=== PATIENT | female | born 1945 | race Caucasian/White ===

== ENCOUNTER 2022-05-31 13:45 | Outpatient (RCR) | payer OTHER, SELFPAY ==
[2022-05-31] MEDS: HEPARIN 500 UNIT/5 ML SYRINGE IVF (14:05)
== END 2022-06-05 23:59 | disposition home or self-care (01) ==
LOC: CCIC 13:45
PROVIDERS: PCP Family Medicine; Visit Provider Clinical Nurse Specialist
DX: C34.91 Malignant neoplasm of unspecified part of right bronchus or lung (principal)
CPT/HCPCS: 99211; J1642

== ENCOUNTER 2022-07-15 10:07 | Outpatient (CLI) | payer OTHER, SELFPAY ==
--- NOTE | 2022-07-15 11:00 | CRLHL7_ITS ---
For Patients: As a result of the Century Cures Act, medical imaging exams and procedure reports are released immediately into your electronic medical record. You may view this report before your referring provider. If you have questions, please contact your health care provider. Indication: STAGE 3 LUNG CANCER RT SIDE Technique: Noncontrast CT chest Please note that all CT scans at this facility use dose modulation, iterative reconstruction, and/or weight-based dosing when appropriate to reduce radiation dose to as low as reasonably achievable. Comparison: 01/18/2022, 10/13/2020 Findings: There is no significant interval change in the post treatment changes to the right upper perihilar lung with stable masslike opacification and bronchiectasis extending from the superior right hilum to the right lung apex. Stable 3 millimeter nodular density at the tip of the right lung apex. Mild emphysematous changes. Chronic reticulonodular scarring/fibrosis at the periphery of the right lower lobe. No pleural effusion or pneumothorax. Stable ectasia of the trachea. Dense vascular calcifications. Right-sided port and left-sided cardiac wires. No enlarged intrathoracic lymph nodes. No destructive osseous lesion. Atrophy of the left kidney. Nodularity left adrenal gland. Old manubrial fracture. Impression: No change compared to the most recent prior exam. Please note that all CT scans at this facility use dose modulation, iterative reconstruction, and/or weight-based dosing when appropriate to reduce radiation dose to as low as reasonably achievable. Dictated by Jm Mahan MD @ 07/15/2022 1:12:42 PM (Electronically Signed)
== END 2022-07-15 10:08 | disposition home or self-care (01) ==
PROVIDERS: PCP Family Medicine; Visit Provider Nurse Practitioner Family
DX: C34.91 Malignant neoplasm of unspecified part of right bronchus or lung
CPT/HCPCS: 71250

== ENCOUNTER 2022-09-02 14:00 | Outpatient (RCR) | payer OTHER, SELFPAY ==
[2022-07-05] MEDS: SODIUM CHLORIDE 0.9 % (FLUSH) 10 ML SYRINGE IVF (14:51)
[2022-07-05] MEDS: HEPARIN 500 UNIT/5 ML SYRINGE IVF (14:52)
[2022-07-15 10:58] LABS: Basophils Absolute Auto 0.03 K/uL (0.00-0.30); Basophils Percent Auto 0.5 % (0.0-3.0); Eosinophils Absolute Auto 0.14 K/uL (0.00-0.50); Eosinophils Percent Auto 2.4 % (0.0-7.0); Hematocrit 37.2 % (33.0-51.0); Immature Granulocytes Abs Auto 0.03 K/uL (0.00-0.30); Lymphocytes Percent Auto 13.2 % (20-44); Mean Corpuscular HGB Conc 32 gm/dL (32-36); Mean Corpuscular Hemoglobin 29 pg (26-34); Mean Corpuscular Volume 91 fL (80-100); Monocytes Percent Auto 8.4 % (0.0-11.0); Platelet Count* 206 K/uL (140-440); RDW Coefficient of Variation % 13.7 % (11.5-15.5); White Blood Count* 5.85 K/uL (4.50-11.00)
[2022-07-15 10:59] LABS: Slide Review Reflex No
[2022-07-15 11:03] LABS: Albumin* 4.5 g/dL (3.3-5.0); Chloride* 102 mmol/L (96-114)
[2022-07-15 11:04] LABS: Potassium* 4.7 mmol/L (3.6-5.1); Sodium* 137 mmol/L (135-149)
[2022-07-15 11:06] LABS: Bilirubin Total* 0.5 mg/dL (0.1-1.5); Creatinine* 2.1 mg/dL (0.5-1.5); Estimated Glomerular Filt Rate 24 ml/min
[2022-07-15 11:07] LABS: Alanine Aminotransferase* 20 U/L (4-35); Alkaline Phosphatase* 115 U/L (40-150); Aspartate Amino Transferase* 25 U/L (12-35); Blood Urea Nitrogen* 38 mg/dL (7-30); Carbon Dioxide* 24 mmol/L (20-32); Glucose* 105 mg/dL (60-115); Total Protein* 7.7 g/dL (6.0-8.3)
--- NOTE | 2022-07-15 14:54 | ONC.NURNOTE ---
Pt here today for labs/CT scan. Creat 2.1; was 1.8 01/2022. Pt has history of acute kidney injury; Dr. Cleaning is primary care. Pt is feeling well and hydrated; recommended pt increase hydration in the next few days, reviewed avoiding caffeine/alcohol and to f/u with Dr. Cleaning within the next week. LM with Dr. Cleaning's team describing situation and that pt was recomended to f/u within 1 week with him for follow up/further workup.
[2022-09-02] MEDS: HEPARIN 500 UNIT/5 ML SYRINGE IVF (13:55)
[2022-09-02] MEDS: SODIUM CHLORIDE 0.9 % (FLUSH) 10 ML SYRINGE IVF (13:55)
== END 2023-01-01 23:59 | disposition home or self-care (01) ==
LOC: CCIC 14:00
PROVIDERS: PCP Family Medicine; Referring Provider Family Medicine; Visit Provider Clinical Nurse Specialist
DX: C34.91 Malignant neoplasm of unspecified part of right bronchus or lung (principal)
CPT/HCPCS: 36415; 36591; 80053; 85025; 99211; 99212; 99214; J1642

== ENCOUNTER 2023-02-13 09:46 | Outpatient (CLI) | payer OTHER, SELFPAY ==
--- NOTE | 2023-02-13 | CRLHL7_ITS ---
For Patients: As a result of the Century Cures Act, medical imaging exams and procedure reports are released immediately into your electronic medical record. You may view this report before your referring provider. If you have questions, please contact your health care provider. Indication: Stage III lung cancer monitor Technique: Noncontrast CT chest Please note that all CT scans at this facility use dose modulation, iterative reconstruction, and/or weight-based dosing when appropriate to reduce radiation dose to as low as reasonably achievable. Comparison: 07/15/2022 Findings: Stable posttreatment changes to the right upper lobe with stable soft tissue density extending from the right superior hilum to the right apical pleura along with bronchiectasis and volume loss. Stable tiny nodules in the posterior left lower lobe. Underlying chronic lung disease and patchy areas of scarring. No acute infiltrate, edema, effusion or pneumothorax. Left-sided port. Atherosclerotic disease. No enlarged lymph nodes. Ectatic aorta. Nodularity of the adrenal glands. Atrophy of the left kidney. Stable appearance of the manubrium. Impression: Stable exam. No significant change compared to the prior study Please note that all CT scans at this facility use dose modulation, iterative reconstruction, and/or weight-based dosing when appropriate to reduce radiation dose to as low as reasonably achievable. Dictated by Jm Mahan MD @ 02/14/2023 11:08:17 AM (Electronically Signed)
== END 2023-02-13 09:47 | disposition home or self-care (01) ==
LOC: CT 09:47
PROVIDERS: PCP Family Medicine; Visit Provider Nurse Practitioner Family
DX: C34.90 Malignant neoplasm of unspecified part of unspecified bronchus or lung (principal)
CPT/HCPCS: 71250

== ENCOUNTER 2023-02-23 10:10 | Outpatient (RCR) | payer OTHER, SELFPAY | END 2023-08-22 23:59 | disposition home or self-care (01) | LOC: CCIC 10:10 | PROVIDERS: PCP Family Medicine; Referring Provider Family Medicine; Visit Provider Internal Medicine Hematology & Oncology | DX: C34.91 Malignant neoplasm of unspecified part of right bronchus or lung (principal); N18.9 Chronic kidney disease, unspecified | CPT/HCPCS: 99212; 99214 ==

== ENCOUNTER 2023-05-04 10:47 | Outpatient (CLI) | payer OTHER, SELFPAY | END 2023-05-04 10:48 | disposition home or self-care (01) | PROVIDERS: PCP Family Medicine; Visit Provider Nurse Practitioner Family | DX: Z00.00 Encounter for general adult medical examination without abnormal findings (principal); E78.5 Hyperlipidemia, unspecified; I10 Essential (primary) hypertension; E03.9 Hypothyroidism, unspecified | CPT/HCPCS: 80053; 80061; 84443 ==

== ENCOUNTER 2023-08-28 14:29 | Outpatient (CLI) | payer OTHER, SELFPAY ==
--- NOTE | 2023-08-28 15:00 | CRLHL7_ITS ---
For Patients: As a result of the Century Cures Act, medical imaging exams and procedure reports are released immediately into your electronic medical record. You may view this report before your referring provider. If you have questions, please contact your health care provider. 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 Comparison: 02/13/2023, 07/15/2022 Findings: Posttreatment changes to the right upper lung again noted with volume loss and bronchiectasis. Mild scarring is present within the lung parenchyma elsewhere within both lung apices and within the posterior aspect of the right lower lobe. No pleural effusion or pulmonary edema. No fracture. No enlarged lymph nodes. Atherosclerotic disease. Thickening of the left adrenal gland is unchanged. Impression: Stable exam. No significant change. Please note that all CT scans at this facility use dose modulation, iterative reconstruction, and/or weight-based dosing when appropriate to reduce radiation dose to as low as reasonably achievable. Dictated by Jm Mahan MD @ 08/29/2023 9:32:11 AM (Electronically Signed)
== END 2023-08-28 14:30 | disposition home or self-care (01) ==
LOC: CT 14:30
PROVIDERS: PCP Family Medicine; Visit Provider Internal Medicine Hematology & Oncology
DX: C34.90 Malignant neoplasm of unspecified part of unspecified bronchus or lung (principal)
CPT/HCPCS: 71250

== ENCOUNTER 2024-04-24 11:20 | Outpatient (CLI) | payer OTHER, SELFPAY | END 2024-04-24 11:21 | disposition home or self-care (01) | PROVIDERS: PCP Family Medicine; Visit Provider Family Medicine | DX: E03.9 Hypothyroidism, unspecified (principal); E78.5 Hyperlipidemia, unspecified; I10 Essential (primary) hypertension | CPT/HCPCS: 80053; 80061; 84443 ==

== ENCOUNTER 2024-09-16 09:34 | Outpatient (CLI) | payer OTHER, SELFPAY ==
--- OUTSIDE RECORDS SUMMARY | 2024-09-21 06:19 | XMS_ITS | Clinical Summary ---
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 Encounters Date Type Department Care Team Description 09/17/2024 1:00 PM DRYWALL APPLICATION SUPERVISOR Ancillary Procedure [facility] [address] [place] [address] Arrived 09/17/2024 Lab Requisition [facility] [phone] Unknown, Doctor from Last 3 Months Immunizations Name Administration Dates Next Due Td, [...] Comments Blood Pressure 116/70 09/23/2019 12:30 PM DRYWALL APPLICATION SUPERVISOR Pulse 60 09/23/2019 12:30 PM DRYWALL APPLICATION SUPERVISOR Temperature 36.7 ??C (98.1 ??F) 04/03/2019 10:52 AM C DT Respiratory Rate 16 09/23/2019 12:30 PM DRYWALL APPLICATION SUPERVISOR Oxygen Saturation 93% 04/03/2019 11:50 AM CDT Inhaled Oxygen Concentration - - Weight 64.9 kg (143 lb) 09/23/2019 12:30 PM DRYWALL APPLICATION SUPERVISOR Height 162.6 cm (5' 4) 04/02/2019 11:09 [...] Tetanus booster 02/17/2020 02/16/2010 COVID-19 vaccine series ( season) 4 Influenza for age 65+ 07/07/2024 DEXA/DXA scan for age 65+ Completed 04/12/2011 Medical Devices Implanted Type Area Marketing Development Representative Device Identifier Shelf Expiration Date Model / Serial / Lot Icd Only Implanted:03/2010 by Unknown, Doctor (Quantity not on file) ICD Only [employer] V-[id number] / [id number] / Procedures Procedure Name Priority Date/Time Associated Diagnosis Comments ECHO TTE COMPLETE W CONTRAST Routine 09/17/2024 1:54 PM DRYWALL APPLICATION SUPERVISOR Atrial fibrillation with RVR (HC) LAB TRACKING EVENT Routine 09/16/2024 4: 53 PM DRYWALL APPLICATION SUPERVISOR PATH NON BOX COVERER HAND CYTOLOGY Routine 09/16/2024 12:00 PM DRYWALL APPLICATION SUPERVISOR SCAN-BONE DENSITOMETRY DEXA 04/12/2011 12:00 AM CDT from Last 3 Months or Most Recently Relevant to Health Maintenance Results * ECHO TTE COMPLETE W CONTRAST (09/17/2024 1:54 PM DRYWALL APPLICATION SUPERVISOR) AORTIC VALVE MEAN PG 6 mmHg LVEDD 4.8 cm EJECTION FRACTION 20 - 25% Anatomical Region Laterality Modality Ultrasound 09/17/2024 1:08 PM DRYWALL APPLICATION SUPERVISOR Narrative 09/17/2024 4:54 PM DRYWALL APPLICATION SUPERVISOR ECHOCARDIOGRAM RUPALI NIEVES ?Accession#: ?? [id number] : ?1945 79 years Study Date: ?? 09/17/2024 1:08:57 PM Gender: F ? BP: ? 166/65 mmHg Height: 157.00 cm ? BSA: ?1.68 m? ? ? Weight: 67.00 kg ?Tech: ? MBF ?Referring MD: PROVIDER REFERRING Site: ? [facility] Reading Location: Mobile [facility] Patient Location: Inpatient. Procedure: 2D w/ Contrast, Color Doppler and Spectral Doppler. Indication for study: Atrial fibrillation with RVR Cardiac Rhythm: Atrial fibrillation.Study quality: Fair. Final Impressions: 1. Normal LV size, normal wall thickness, severely reduced global systolic function with an estimated EF of 20 - 25%. 2. Multiple segmental abnormalities exist. See findings. 3. Right ventricular cavity size is normal, global systolic RV function is normal. Pacemaker wire present. 4. The aortic valve is trileaflet and sclerotic, no stenosis and trivial regurgitation. 5. Trivial pericardial effusion. 6. Echo contrast was administered to enhance visualization of all left ventricular segments. Chamber Sizes and Function Normal left ventricular size, normal wall thickness, severely reduced global systolic function with an estimated EF of 20 - 25%. Left atrial size is normal. Left atrial pressure is normal. Right ventricular cavity size is normal, global systolic RV function is normal. Pacing wire/catheter visualized in the right ventricle and pacing wire/catheter visualized in the right atrium. The right atrium is normal. The pulmonary artery is of normal size and origin. The sinus of Valsalva is normal sized. The ascending aorta is normal sized. The mid and distal anterior septum, inferior septum, and entire inferior wall are akinetic. The basal anterior septum segment and apical anterior segment are hypokinetic. Valves, RV Pressures and Diastolic Function The aortic valve is trileaflet and sclerotic, no stenosis and trivial regurgitation. The mitral valve is normal in structure, trace mitral regurgitation. Indeterminate pattern of LV diastolic filling. The tricuspid valve is not well visualized. Tricuspid regurgitation is trace regurgitation. The pulmonic valve is normal. Trace pulmonary regurgitation. Masses, Effusion, Shunts There is trivial pericardial effusion. The inferior vena cava is normal sized, respiratory size variation greater than 50%. No left to right shunting was detected by limited color flow Doppler interrogation of the interatrial septum. MEASUREMENTS AND CALCULATIONS 2-D Measurements and LV Function: LVID (d) 4.8 cm LV FS% (2D) ?? 5 % LVID (s) 4.5 cm LVOT diameter 2.0 cm IVS (d) ??1.0 cm HR ?128 bpm LVPW (d) 1.0 cm LA Vol index ??27 ml/m2 Ao Sinus 3.3 cm Asc Ao ?? 3.7 cm Aortic Valve: Vmax ? 1.5 m/s ??SUSANNAH (V) ?? 1.80 cm? ? ? VTI ?0.26 m ?? SUSANNAH (I) ?? 1.69 cm? ? ? LVOT V max 0.9 m/s ??Max PG ?9 mmHg LVOT VTI ?? 0.14 m ?? Mean PG ?? 6 mmHg SV ? 43 ml ?Dim Index 0.56 SV index ?? 26 ml/m? ? ? CO ?5.5 l/min ?CI ?3.3 l/min/m? ? ? Tricuspid Valve and estimated PA pressures: TAPSE 0.9 cm Contrast documentation: 3 ml diluted Definity, lot #[id number], [facility]# [id number] was administered Port to enhance visualization of all left ventricular segments. . This study was interpreted by an IAC accredited facility. CC: [facility] (med records) [facility], Med/Surg - IP [facility]. ??Final ?? Procedure Note mJ Emmanuel MD - 09/17/2024 ECHOCARDIOGRAM RUPALI NIEVES : 1945 79 years Study Date: 09/17/2024 1:08:57 PM Gender: F BP: 166/65 mmHg Height: 157.00 cm BSA: 1.68 m? ? ? Weight: 67.00 kg Tech: JACI Referring MD: PROVIDER REFERRING Site: [facility] Reading Location: Mobile [facility] Patient Location: Inpatient. Procedure: 2D w/ Contrast, Color Doppler and Spectral Doppler. Indication for study: Atrial fibrillation with RVR Cardiac Rhythm: Atrial fibrillation.Study quality: Fair. Final Impressions: 1. Normal LV size, normal wall thickness, severely reduced globalsystolic function with an estimated EF of 20 - 25%. 2. Multiple segmental abnormalities exist. See findings. 3. Right ventricular cavity size is normal, global systolic RV functionis normal. Pacemaker wire present. 4. The aortic valve is trileaflet and sclerotic, no stenosis and trivialregurgitation. 5. Trivial pericardial effusion. 6. Echo contrast was administered to enhance visualization of all leftventricular segments. Chamber Sizes and Function Normal left ventricular size, normal wall thickness, severely reducedglobal systolic function with an estimated EF of 20 - 25%. Left atrialsize is normal. Left atrial pressure is normal. Right ventricular cavitysize is normal, global systolic RV function is normal. Pacingwire/catheter visualized in the right ventricle and pacing wire/cathetervisualized in the right atrium. The right atrium is normal. The pulmonaryartery is of normal size and origin. The sinus of Valsalva is normalsized. The ascending aorta is normal sized. The mid and distal anteriorseptum, inferior septum, and entire inferior wall are akinetic. The basalanterior septum segment and apical anterior segment are hypokinetic. Valves, RV Pressures and Diastolic Function The aortic valve is trileaflet and sclerotic, no stenosis and trivialregurgitation. The mitral valve is normal in structure, trace mitralregurgitation. Indeterminate pattern of LV diastolic filling. Thetricuspid valve is not well visualized. Tricuspid regurgitation is traceregurgitation. The pulmonic valve is normal. Trace pulmonaryregurgitation. Masses, Effusion, Shunts There is trivial pericardial effusion. The inferior vena cava is normalsized, respiratory size variation greater than 50%. No left to rightshunting was detected by limited color flow Doppler interrogation of theinteratrial septum. MEASUREMENTS AND CALCULATIONS 2-D Measurements and LV Function: LVID (d) 4.8 cm LV FS% (2D) 5 % LVID (s) 4.5 cm LVOT diameter 2.0 cm IVS (d) 1.0 cm HR 128 bpm LVPW (d) 1.0 cm LA Vol index 27 ml/m2 Ao Sinus 3.3 cm Asc Ao 3.7 cm Aortic Valve: Vmax 1.5 m/s SUSANNAH (V) 1.80 cm? ? ? VTI 0.26 m SUSNANAH (I) 1.69 cm? ? ? LVOT V max 0.9 m/s Max PG 9 mmHg LVOT VTI 0.14 m Mean PG 6 mmHg SV 43 ml Dim Index 0.56 SV index 26 ml/m? ? ? CO 5.5 l/min CI 3.3 l/min/m? ? ? Tricuspid Valve and estimated PA pressures: TAPSE 0.9 cm Contrast documentation: 3 ml diluted Definity, lot #[id number], [facility]#[id number] was administered Port to enhance visualization of all leftventricular segments. . This study was interpreted by an IAC accredited facility. CC: [facility] (med records) [facility], [facility]/Surg - IP [facility]. Final Provider Referring ECHO ORD * LAB TRACKING EVENT (09/16/2024 4:53 PM DRYWALL APPLICATION SUPERVISOR) Other (Other) Client Collect / Unknown 09/16/2024 4:53 PM DRYWALL APPLICATION SUPERVISOR 09/17/2024 1:48 PM DRYWALL APPLICATION SUPERVISOR Doctor Unknown LAB BILL ONLY [facility] [address] [place] [address], * PATH NON BOX COVERER HAND CYTOLOGY (09/16/2024 12:00 PM DRYWALL APPLICATION SUPERVISOR) Case Report Medical Cytology Report ? Case: [id number] ? Authorizing Provider: ??Unknown, Doctor ?Collected: ? 09/16/2024 1200 ? Ordering Location: ? [facility] ?Received: ?09/17/2024 1426 ? Pathologist: ? Rajinder Hare MD ? Specimen: ?Pleural Fluid ? 4 2:55 PM [facility] Final Diagnosis A) PLEURAL FLUID, LATERALITY NOT SPECIFIED, CYTOLOGY WITH CELL BLOCK: 1. Positive for malignancy, favor metastatic small cell carcinoma, see comment 4 2:55 PM DRYWALL APPLICATION SUPERVISOR [facility] Comment The sample is hypocellular, showing a few scattered individual malignant cells and small groups of malignant cells. These cells are small in size with high nuclear / cytoplasmic ratios and finely granular chromatin without nucleoli. IHC studies below are in keeping with, although not entirely specific for small cell carcinoma. ??The patient's reported history of squamous carcinoma of the right lung is noted. ??The morphology and IHC in the current slides are not those of a squamous phenotype. Case seen in consultation with Dr. Sunshine who agrees. 4 2:55 PM [facility] Clinical Information Patient is a former smoker with a history of squamous carcinoma of the right lung, upper lobe. Electronic notes in Care Everywhere from [facility] indicating that she was treated by radiation oncology there in 2019. 4 2:55 PM [facility] Gross Description A) SOURCE: Pleural fluid The specimen consists of 5 cc of light yellow clear fluid from which the following is prepared: ? -1 DiffQuik stained slide ? -1 Papanicolaou stained ThinPrep slide ? -1 H&E stained cell block slide A2 Cell block material was placed in formalin at 1450 on 09/17/24 and fixed in formalin at least 6 hours and no more than 72 hours. A3 Cell block material was placed in formalin at 0940 on 09/19/24 and fixed in formalin at least 6 hours and no more than 72 hours. 4 2:55 PM [facility] Microscopic Description Specimen adequacy: Adequate for interpretation. All slides were reviewed. The microscopic appearance substantiates the diagnosis. IHC studies (cell block A2) are interpreted in the malignant cells as follows: CK AE1/AE3... ?Positive TTF1... ?Negative ? Napsin... ?Negative p40... ? Negative CK5... ? Negative Synaptophysin... ?? Negative Chromogranin... ?Negative INSM1... ? Positive POU2F3... ?Negative The pattern of immunoreactivity is consistent with (although not specific for) metastatic small cell carcinoma. Support for the interpretation of this case may have included the use of immunohistochemistry and/or in situ hybridization tests that were performed by [facility] and whose performance characteristics were evaluated by pathologists from [facility]. These tests have not been cleared or approved by the U.S. Food and Drug Administration. The FDA has determined that such clearance or approval is not necessary. These tests are used for clinical purposes and should not be regarded as investigational or for research. This laboratory is certified under the Clinical Laboratory Improvement Amendments of 1988 (CLIA) as qualified to perform high complexity clinical laboratory testing. 4 2:55 PM DRYWALL APPLICATION SUPERVISOR [facility] Additional Information Cytology is screened at [facility] - [address], [place] [address] and [facility] - [address] [place] [address] and [facility] - [address] [place] [place] [address] Interpreted at [facility] - [address], [place] [address] Immunohistochemistry controls were reviewed and approved by the pathologist during this examination. 4 2:55 PM DRYWALL APPLICATION SUPERVISOR [facility] Other PLEURAL FLUID SPECIMEN / Unknown 09/16/2024 12:00 PM DRYWALL APPLICATION SUPERVISOR 09/17/2024 2:26 PM DRYWALL APPLICATION SUPERVISOR Doctor Unknown PATHOLOGY/CYTOLOGY [facility] [address] [place] [address], * SCAN-BONE DENSITOMETRY DEXA (04/12/2011 12:00 AM [...] 9:10 AM 11/23/2017 3:51 PM Care Teams Time Cycle Operator Relationship Specialty Start Date End Date Dago Cleaning MD PCP - General Family Practice 05/28/14
== END 2024-09-16 09:35 | disposition home or self-care (01) ==
LOC: AMB 09-21 06:18
PROVIDERS: PCP Family Medicine; Visit Provider Family Medicine
DX: R53.1 Weakness (principal)
CPT/HCPCS: A0425; A0427

== ENCOUNTER 2024-09-16 10:09 | Inpatient (IN) | payer OTHER, SELFPAY ==
[2024-09-16] VITALS (46 sets, daily range): BP systolic 78–123; BP diastolic 48–90; PULSE 101–135; RESP 22–38; TEMP 35.8–36.4; O2SAT 89–99; BMI 26.6
--- NOTE | 2024-09-16 10:22 | ED_ITS ---
HPI - General Adult General Date Seen: 09/16/24 Chief complaint: Weakness Stated complaint: weakness Time Seen by Provider: 09/16/24 10:22 History of Present Illness HPI narrative: 79 yo F with h/o HTN, A fib, ICD, Lung CA, tobacco use,, dementia, colon polyps, coronary artery disease (AL 2009 with 2 stents), CHF with EF of 30% he, presenting to the ER today with weakness. Most recent PCP visit was in April. According to those notes she is on Eliquis, hydrochlorothiazide, levothyroxine, lisinopril, metoprolol ER 25 mg daily, rosuvastatin, Tylenol She most recent oncology visit was in 2021. According that record she was treated for lung cancer in 2019. She had chemotherapy and radiation therapy. According to her visit from 2021 She is post to have follow-up CT scans of her lungs every 6 months (noncontrast due to poor kidney function). It does not look like she has had any follow-up visits with oncology in [place] since then. She lives alone in her own home. History is obtained from the patient. She says she has just been feeling ?weak? with no energy since last . She has a very vague historian and I suspect she probably has some dementia which limits her reliability. It does not sound like the weakness was abrupt in onset . She may have actually been a little bit weak for a few days before but definitely has been weak since then. No other definite symptoms. She is not really feeling short of breath. No chest pain. No palpitations despite the fact that her heart rate is 130. No recent cough. No fever. No falls or injuries. No abdominal pain. She has been feeling constipated and was only able to pass a few hard pellets of stool yesterday. No bowel movement today. She says urination has been normal. No swelling in her legs. She brought all of her meds with her. Her pill bottles reflect what was on her med list from April. When I ask her what med she is taking, specifically if she is taking her Eliquis or not, she says ?I do not think I have that .? however, she has a bottle of Eliquis with her along with her other meds. I asked the patient if she has any close friends or family. She says her children live ?2 blocks away. ?. But she does not want us to call them. She says ?they will find out I am here this evening when they get home firm work. However, with the patient seeming confusion I did call her family. Her son Arnold has a phone number that is disconnected. I was able to get through to her [id number], Elizabeth. Elizabeth says that they have been seeing her occasionally lately and that she seems to be a little bit short of breath sometimes but they are not sure if it she is really short of breath or just anxious. No obvious difficulty breathing and no obvious recent illness. Elizabeth has not had contact with her for several days. Elizabeth will come here to the ER to be with her. Related Data Home Medications ?Medication ?Instructions ?Recorded ?Confirmed acetaminophen 325 mg capsule 650 mg PO Q6H PRN 08/04/22 09/16/24 (Tylenol) Previous Rx's ?Medication ?Instructions ?Recorded apixaban 2.5 mg tablet (Eliquis) 2.5 mg PO BID #180 tabs 04/24/24 hydrochlorothiazide 25 mg tablet 25 mg PO DAILY #90 tabs 04/24/24 levothyroxine 88 mcg tablet See Rx Instructions .Route 04/24/24 .COMPLEX #90 tabs lisinopril 10 mg tablet See Rx Instructions .Route 04/24/24 .COMPLEX #90 tabs metoprolol succinate 25 mg 25 mg PO DAILY #90 tabs 04/24/24 tablet,extended release 24 hr rosuvastatin 20 mg tablet 20 mg PO DAILY #90 tabs 04/24/24 Allergies Allergy/AdvReac Type Severity Reaction Status Date / Time penicillin V Allergy Mild swelling Verified 09/16/24 10:26 [facility] Surgical History Status post coronary artery stent placement ?Z95.5 - Presence of coronary angioplasty implant and graft (ICD-10) Status post cardiac pacemaker procedure ?Z95.0 - Presence of cardiac pacemaker (ICD-10) Status post breast lumpectomy ?Z98.890 - Other specified postprocedural states (ICD-10) Social History What is your current living situation?: I presently have a place to live Problems where you live: no known problems In the past 12 months, utilities in danger of being shut off: no In past 12 months, lack of transportation kept you from medical appts, meetings, work, or getting things needed for daily living: no In the past 12 mos, have been you worried that your food would run out before you had money to buy more?: never true In the past 12 mos, the food you bought just didn't last and you didn't have money to buy more?: never true Are you following a diet prescribed by a doctor: No Are you following a special diet: No Smoking Status: Former smoker How often do you have a drink containing alcohol: never How often do you have six or more drinks on one occasion: Never AUDIT-C Alcohol total score: 0 Non-prescribed substance use: denies use Caffeine: Yes How often does anyone, including family, friends and others, physically hurt you : never How often does anyone, including family, friends and others, insult or talk down to you: never How often does anyone, including family, friends and others, threaten you with harm: never How often does anyone, including family, friends and others, scream or curse at you: decline to answer Little interest or pleasure in doing things: more than half the days Feeling down, depressed, or hopeless: nearly every day Exam Narrative: Exam Narrative: Primary Survey: A- patent. Speaking clearly. Phonation normal. No stridor. B- tachypneic but denies feeling short of breath. Says she ?feels fine. ?. Lung sounds clear and equal. Oxygen saturation normal on room air . Was reported to be in the 80s by EMS and was charted 89% by her nurse triage vitals but sats are actually 93% on room air. Very diminished lung sounds on the right. I did a stat portable bedside ultrasound and there is absent lung sliding on the right but there is present lung sliding on the left. This suggests either air or fluid in the chest cavity. Stat portable chest x-ray shows complete whiteout of the right lung with apparent upward deviation of the right mainstem bronchus. Will hold off on chest CT since this is not definitively a pneumothorax. She has a history of lung cancer on that side with no previous surgery, per her recollection. Oncology records indicate that she had chemotherapy and radiation. C- no active bleeding. Blood pressure stable. Tachycardic with heart rate of 130, regular on the monitor. EKG suggest either a flutter with 2:1 conduction or possibly SVT. Symmetric pulses and cap refill in 4 extremities. D- alert and oriented x3. GCS 15. No focal deficits. Constitutional: Appears well-developed and well-nourished. Alert. Conversant but vague historian. Non toxic. HENT: Head: Atraumatic. Nose: Nose normal. Mouth/Throat: Oral mucosa is clear and moist. no trismus. Pharynx normal. Tonsils symmetric. No tonsillar enlargement, erythema, or exudate. Eyes: Conjunctivae normal. EOM normal. Pupils equal, round, and reactive to light. No scleral icterus. Neck: Normal range of motion. Neck supple. No tracheal deviation present. No JVD Cardiovascular: Tachycardic and regular. Heart rate 130.No gallop. No friction rub. No murmur heard. Symmetric radial and PT artery pulses Pulmonary/Chest: Tachypneic. Says she is not feeling short of breath. Diminished lung sounds on the right. Fairly normal on the left. No asymmetry of the trachea or tracheal deviation. Abdominal: Soft. Bowel sounds normal. No distension. No mass. No tenderness. No rebound. No guarding. No CVA tenderness. Musculoskeletal: RUE: Normal range of motion. No tenderness. No deformity LUE: Normal range of motion. No tenderness. No deformity RLE: Normal range of motion. No edema. No tenderness. No deformity LLE: Normal range of motion. No edema. No tenderness. No deformity Neurological: Alert and oriented to person, place, and date. She lives alone and says she was thinking about driving in but was feeling too weak so decided to call ambulance. However she is not a reliable historian. She can not really give a description of how long she has been feeling weak. Although she has Eliquis with her other meds, she initially says she did not have it.. Normal strength. CN II-VII intact. No sensory deficit. GCS eye subscore is 4. GCS verbal subscore is 5. GCS motor subscore is 6. Normal coordination Skin: Skin is warm and dry. No rash noted. No pallor. Normal capillary refill. Psychiatric: Normal mood. Normal affect. She is minimizing her symptoms, I think. Polite. Const: Vital Signs, click to edit/add: Vital Signs - 24 hr 09/16/24 10:18 Temperature 96.4 F L Pulse Rate [Pulse Oximeter] 131 H Respiratory Rate 22 Blood Pressure [Le ft Upper Arm] 109/84 Pulse Oximetry 89 Oxygen Delivery Me thod Room Air Course Course ED Course: Patient arrived by EMS and was triaged in the ER room 8. Report was given by EMS to the nursing staff without physician present. Nurse's obtain 12 lead EKG and brought it to me. It showed a narrow complex tachycardia with a heart rate of 130. Either SVT or possibly a flutter with 2:1 conduction. I went immediately to the patient's room to perform history and physical. She was sitting up in bed, alert, tachypneic but otherwise not in distress. No accessory muscle use new, no cyanosis, no diaphoresis. No severe distress. She is able to speak full sentences. Lung exam revealed absent lung sounds on the right side. Point of care ultrasound showed absent lung sliding suggestive of pneumothorax or other fluid in the right chest cavity. With history of lung cancer, unclear if she had had a previous pneumonectomy there or not. Although she is tachycardic, would hold off on immediate chest tube placement. Portable chest x-ray shows complete whiteout of the lung, not a clear pneumothorax. Point of care creatinine came back at 2.2. Baseline creatinine from April was 1.9 with a GFR 27. With worsening kidney function would hold off on CT with contrast. I ordered a stat noncontrast chest CT and call radiology department to have them expedite the imaging. Although she is tachycardic and tachypneic her oxygen sats are normal on room air. She is not in extreme distress requiring immediate chest tube placement. Would be optimal to get better imaging of her chest to make sure we do the appropriate interventions. Likewise, although she has a heart rate of 130, would hold off on any rate control for now because I think this may be a physiologic response to her lung problem rather than a primary arrhythmia. Will administer IV fluids and monitor carefully. Vital Signs Vital signs: Initial Vital Signs Temperature 96.4 F L 09/16/24 10:18 Temperature Source Temporal Artery Scan 09/16/24 10:18 Pulse Rate 131 H 09/16/24 10:18 Pulse Rhythm Irregular 09/16/24 10:18 Respiratory Rate 22 09/16/24 10:18 Blood Pressure 109/84 09/16/24 10:18 Blood Pressure Mean 92 09/16/24 10:18 Blood Pressure Position Sitting 09/16/24 10:18 Pulse Oximetry 89 09/16/24 10:18 Oxygen Delivery Method Room Air 09/16/24 10:18 Vital Signs Temperature 96.4 F L 09/16/24 10:18 Pulse Rate 131 H 09/16/24 10:18 Respiratory Rate 22 09/16/24 10:18 Blood Pressure 109/84 09/16/24 10:18 Pulse Oximetry 89 09/16/24 10:18 Oxygen Delivery Method Room Air 09/16/24 10:18 Temperature 96.4 F L 09/16/24 10:18 Pulse Rate 131 H 09/16/24 10:18 Respiratory Rate 22 09/16/24 10:18 Blood Pressure 109/84 09/16/24 10:18 Pulse Oximetry 89 09/16/24 10:18 Oxygen Delivery Method Room Air 09/16/24 10:18 Medications Administered Medications: Discontinued Medications Generic Name Dose Route Start Last Admin Trade Name Freq PRN Reason Stop Dose Admin Sodium Chloride 500 mls @ 500 mls/hr 09/16/24 10:37 09/16/24 11:15 0.9 % Sodium Chloride 500 Ml IV 09/16/24 11:36 500 mls/hr .Q1H ONE Administration Medical Decision Making MDM Narrative Medical decision making narrative: 79-year-old female presenting to the ER today for ?weakness? ongoing for several days at home. She has been putting off coming to the doctor because she just does not want to take the trouble or bother anybody. Does not sound like she is acutely worse today but today she finally decided that she should be seen. She was feeling a bit too weak so she decided not to drive herself and had an ambulance bring her in. She denies feeling short of breath but is a bit tachypneic. She was hypoxic for EMS but initially had normal sats here in the ER. She then fell asleep and did develop hypoxia so is now on 2 L nasal cannula and satting in the 90s. She is not acutely short of breath requiring CPAP or BiPAP or endotracheal intubation. Lung sounds are quite diminished on the right. Chest x-ray and CT scan show complete whiteout of the right hemithorax. CT scan suggests a pleural effusion with compression of the right long. Not in acute pneumothorax. No history of trauma to raise concern for hemothorax. Concern here would be is this a malignant pleural effusion or is this perhaps a reactive pleural effusion or empyema. CT scan also shows mediastinal and subcarinal lymphadenopathy which could be concerning for progressive malignancy. CT scan also shows a small pericardial effusion. Cardiac monitoring EKG show a regular narrow complex tachycardia with our rate consistently at 130. EKG computer read on the EKG suggest this is supraventricular tachycardia. However at the fairly low rate I doubt that. I do not see any clear retrograde P waves. I do think she may actually be having for atrial flutter with 2:1 conduction because I think there are flutter waves visible in lead V1 and the aVL. She has a history of AFib. She is supposed to be on anticoagulation with Eliquis but it is unclear if she is taking it lately or not. In discussion with admitting hospitalist we considered possible AV noreen blockers for rate control. However with her large pleural effusion we wonder if this might actually be a physiologically appropriate reactive tachycardia. Since she is otherwise relatively stable. Normal blood pressure. Satting well on 2 L nasal cannula, we will hold off on AV noreen blockers for now. Discussed with our general surgeon, Dr. Barrientos with several phone calls here in the ER. She is going to be going to the OR for a thoracentesis to drain fluid from right lung. As we decompressed the right hemithorax, this might also help improve heart rate and symptoms. At this point since she is fairly stable, it would be best for the patient to have thoracentesis done in the OR rather than a chest tube in the ER so will hold off on emergent chest tube. CBC does show mild leukocytosis with a left shift. No recent cough. However will start antibiotics for possible community-acquired pneumonia. Chest x-ray suggested possible left-sided pulmonary edema but on her CT scan this seems less likely. At the BNP is 2000 but no previous baseline for comparison. She does have chronic renal insufficiency. At this point no clear evidence for acute active CHF so would hold off on diuresis. Troponin negative an EKG showing no acute ischemia. Metabolic profile shows a creatinine of 2.0. Baseline from April was 1.9. Low GFR precludes CT chest with contrast due to the risk of contrast nephropathy. TSH normal. Sodium mildly low at 127. Hemoglobin normal at 13.5. Patient denies any recent black or bloody stools. Plan will be admit to the hospitalist service for tele/careful cardiac and hemodynamic monitoring. She will be going to the OR in the next couple of hours for thoracentesis. Discussed with the patient. She verbalizes her understanding but I suspect she may have some underlying dementia or possibly delirium. Also discussed with her family, Elizabeth. Elizabeth and the patient's son will come to the hospital to meet her mother this afternoon. Lab Data Labs: Lab Results 09/16/24 09/16/24 Range/Units 10:48 11:00 WBC 11.12 H (4.50-11.00) K/uL RBC 4.85 (4.00-5.20) m/uL Hgb 13.5 (12.0-16.0) gm/dL Hct 41.0 (33.0-51.0) % MCV 85 (80-100) fL MCH 28 (26-34) pg MCHC 33 (32-36) gm/dL RDW Coeff of Brianne 13.6 (11.5-15.5) % Plt Count 370 (140-440) K/uL Neut % (Auto) 90.2 H (42.0-72.0) % Lymph % (Auto) 3.4 L (20-44) % [place] % (Auto) 5.3 (0.0-11.0) % Eos % (Auto) 0.4 (0.0-7.0) % Baso % (Auto) 0.3 (0.0-3.0) % Neut # (Auto) 10.00 H (1.7-7.0) K/uL Lymph # (Auto) 0.40 L (0.90-2.90) K/uL [place] # (Auto) 0.60 (0.00-0.90) K/UL Eos # (Auto) 0.00 (0.00-0.50) K/uL Baso # (Auto) 0.00 (0.00-0.30) K/uL Abs Immat Gran (auto) 0.00 (0.00-0.30) K/uL Imm/Tot Granulo (auto) 0.4 % VBG pH 7.372 (7.32-7.43) VBG pCO2 36 L (40-50) mmHG VBG pO2 43.7 (25-47) mmHG VBG HCO3 21 (21-28) mmol/L Sodium 127 L (135-149) mmol/L Potassium 4.1 (3.6-5.1) mmol/L Chloride 94 L (96-114) mmol/L Carbon Dioxide 19 L (20-32) mmol/L Anion Gap 14 (7-15) mEq/L BUN 53 H (7-30) mg/dL Creatinine 2.0 H (0.5-1.5) mg/dL Estimated Creat Clear 18.87 Estimated GFR 25 ml/min Glucose 150 H (60-115) mg/dL Lactate 1.7 (0.5-1.9) mmol/L Calcium 9.5 (8.4-10.6) mg/dL Troponin I 0.04 (0.01-0.04) ng/mL NT-Pro-B Natriuret Pep 2000 pg/mL TSH 3.020 (0.270-4.200) uIU/mL SARS-CoV-2 (PCR) Negative SARS-CoV-2 (Negative) Influenza Type A (PCR) Negative PCR FLU A (Negative) Influenza Type B (PCR) Negative PCR FLU B (Negative) POC Creatinine 2.2 H (0.6-1.3) mg/dl Imaging Data Chest x-ray: Attestation: I have reviewed the pertinent imaging results. My impression: White out of the right hemithorax. Not clear pneumothorax. Will obtain chest CT. Radiologist's impression: Findings/Impression: Cardiovascular and mediastinum: Cardiomegaly with left-sided single lead pacemaker with tip at the expected right ventricle. Aortic tortuosity with atherosclerotic calcification. Right-sided Port-A-Cath with tip at the cavoatrial junction. Lungs and pleural space: Opacified right hemithorax, question underlying pleural effusion/consolidation. Some reticular interstitial prominence within the left lung, possible pulmonary edema. Bones and soft tissues: No acute findings. ECG Data Attestation: I personally reviewed and interpreted this ECG as follows: Interpretation: Narrow complex regular tachycardia with heart rate of 131. Differential includes SVT, atrial flutter with 2:1 conduction. Rate: 131 AR: Not measurable QRS axis: Right axis deviation ST segment/T wave: No ST segment elevation or depression. QTc: 481 No old EKGs available for comparison. Discharge Plan Discharge Clinical Impression: Pleural effusion, Tachycardia, Hypoxia Prescriptions: No Action acetaminophen [Tylenol] 325 mg capsule 650 mg PO Q6H PRN Eliquis 2.5 mg tablet 2.5 mg PO BID Qty: 180 3RF hydrochlorothiazide 25 mg tablet 25 mg PO DAILY Qty: 90 3RF levothyroxine 88 mcg tablet See Rx Instructions .ROUTE .COMPLEX Qty: 90 3RF Dose Instruction: TAKE 1 TABLET (88 MCG) BY MOUTH DAILY Rx Instructions: TAKE 1 TABLET (88 MCG) BY MOUTH DAILY lisinopril 10 mg tablet See Rx Instructions .ROUTE .COMPLEX Qty: 90 3RF Dose Instruction: TAKE 1 TABLET EVERY DAY Rx Instructions: TAKE 1 TABLET EVERY DAY metoprolol succinate 25 mg tablet extended release 24 hr 25 mg PO DAILY Qty: 90 3RF rosuvastatin 20 mg tablet 20 mg PO DAILY Qty: 90 3RF Follow Up/Referrals: Dago Cleaning MD [Primary Care Provider] -
--- NOTE | 2024-09-16 10:37 | CRLHL7_ITS ---
For Patients: As a result of the Century Cures Act, medical imaging exams and procedure reports are released immediately into your electronic medical record. You may view this report before your referring provider. If you have questions, please contact your health care provider. Indication: Shortness of breath Technique: Chest 1 view Comparison: Chest x-ray 11/13/2020 Findings/Impression: Cardiovascular and mediastinum: Cardiomegaly with left-sided single lead pacemaker with tip at the expected right ventricle. Aortic tortuosity with atherosclerotic calcification. Right-sided Port-A-Cath with tip at the cavoatrial junction. Lungs and pleural space: Opacified right hemithorax, question underlying pleural effusion/consolidation. Some reticular interstitial prominence within the left lung, possible pulmonary edema. Bones and soft tissues: No acute findings. Dictated by Marin Marie MD @ 09/16/2024 11:00:20 AM (Electronically Signed)
[2024-09-16 11:07] LABS: HCO3 VBG 21 mmol/L (21-28); PCO2 VBG 36 mmHG (40-50); PO2 VBG 43.7 mmHG (25-47); pH VBG 7.372 (7.32-7.43)
[2024-09-16 11:10] LABS: Lactate* 1.7 mmol/L (0.5-1.9)
--- NOTE | 2024-09-16 11:10 | CT_ITS ---
Patient: CHICO RUTHERFORD Facility:?[facility] Patient ID:?[id number] Site Patient ID:?[id number]. Site :?[id number] Study:?CT-Chest WITHOUT-09/16/2024 11:30:11 AM Ordering Physician:Ryan Del Toro Final Report: INDICATION: History of stage III right lung cancer. TECHNIQUE: CT chest without contrast. COMPARISON: CT chest August 2023 FINDINGS: Lungs and pleura: There is interval development of large partially loculated right-sided pleural effusion with near complete lung collapse. There is occlusion of the right segmental upper lobe bronchi as well as right lower lobe bronchi. Peripheral hyperdense materials are identified within the collapsed lung parenchyma, which is new in comparison to previous CT, which could be related to posttreatment changes or chronic aspiration. Limited assessment for the mass recurrence on noncontrast exam. The detail evaluation motion degraded rotation limits for the left lung parenchyma. There are scattered d subsegmental atelectasis. No left effusion or pneumothorax Stable mild cardiomegaly with partially loculated minimal pericardial effusion. Right-sided [id number] catheter is in place. Cardiac pacemaker defibrillator is identified and it is in position. Thoracic aorta and pulmonary artery are of normal caliber. There is advanced atherosclerotic disease of the aorta.333 New enlarged mediastinal lymph, largest in the right paratracheal location measures 2.0 x 1.6 centimeter in the diameter. Lymph nodes are also identified into the prevascular space, subcarinal location. Partially imaged upper abdomen demonstrates thickening of the left adrenal gland, similar to previous exam. Scattered degenerative changes of the spine. IMPRESSION: History of stage III right lung cancer. Findings are concerning for disease progression with development of large partially loculated right pleural effusion and near complete collapse of the right lung field. New minimal loculated pericardial effusion. New multiple mediastinal lymph nodes including subcarinal lymph nodes. Uncertain etiology of the peripheral hyperdensities within the collapsed right lung parenchyma, can be seen with posttreatment changes or chronic aspiration. Please note that all CT scans at this facility use dose modulation, iterative reconstruction, and/or weight-based dosing when appropriate to reduce radiation dose to as low as reasonably achievable. Dictated by Rory Sutton MD @ 09/16/2024 11:46:57 AM Signed by:?Rory Sutton MD @09/16/2024 11:46:57 AM (Electronic Signature)
[2024-09-16 11:11] LABS: Creatinine, Point-of-Care* 2.2 mg/dl (0.6-1.3)
--- OUTSIDE RECORDS SUMMARY | 2024-09-16 11:11 | XMS_ITS | Clinical Summary ---
Author Organization [facility] Address [place], [place] [address] Care Team Providers Care Hide Buyer Name Role Phone Dago Cleaning MD Primary Care Provider [phone] Allergies Active Allergy Reactions Criticality Noted Date Comments Penicillins Edema 02/16/2010 Medications Medication Sig Dispensed Refills Start Date End Date Status folic acid 1 mg tablet Take 1 tablet by mouth once daily. 0 02/16/2010 Active multivitamin (MVI) tablet Take 1 tablet by mouth once daily. 0 02/16/2010 Active atorvastatin (LIPITOR) 40 mg tabletIndications:Maria Luisa nary artery disease, angina presence unspecified, unspecified vessel or lesion type, unspecified whether [place] or transplanted heart Take 1 tablet by mouth once daily. 90 tablet 3 10/24/2017 Active omega-3/dha/epa/dpa/fi sh oil (OMEGA-3 2100 ORAL) Take 1 capsule by mouth once daily. Active XARELTO 20 mg tablet TAKE 1 TABLET BY MOUTH EVERY DAY DUE TO ABNORMAL HEART RHYTHM. 2 09/09/2019 Active digoxin (LANOXIN) 125 mcg (0.125 mg) tablet Take 125 mcg by mouth once daily. 99 09/09/2019 Active metoprolol succinate SR (TOPROL XL) 200 mg Sustained-Release tablet Take 1 tablet by mouth once daily. 90 tablet 3 10/01/2019 Active levothyroxine (SYNTHROID) 100 mcg tabletIndications:Salomon enital hypothyroidism without goiter Take 1 tablet by mouth before breakfast. 90 tablet 3 10/18/2019 Active lisinopriL (PRINIVIL; ZESTRIL) 10 mg tabletIndications:HTN (hypertension) Take 1 tablet by mouth once daily. 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 Immunizations Name Administration Dates Next Due Td, Preservative Free (age >= 7 Years) 0 Family History Medical History Relation Name Comments No Known Problems Father No Known Problems Mother Relation Name Status Comments Father Mother Social History Tobacco Use Types Packs/Day Years Used Date Smoking Tobacco: Every Day Cigarettes 1 30 Started: 11/06/1985; Last attempted to quit: 11/06/2015 Smokeless Tobacco: Never Tobacco Cessation:Counseling Given: Yes Alcohol Use Standard Drinks/Week Comments No 0 (1 standard drink = 0.6 oz pur e alcohol) Sex and Gender Information Value Date Recorded Sex Assigned at Not on file Gender Identity Not on file Sexual Orientation Not on file Obstetrics History Last Filed Vital Signs Vital Sign Reading Time Taken Comments Blood Pressure 116/70 09/23/2019 12:30 PM CAD DRAFTER Pulse 60 09/23/2019 12:30 PM CAD DRAFTER Temperature 36.7 ??C (98.1 ??F) 04/03/2019 10:52 AM C DT Respiratory Rate 16 09/23/2019 12:30 PM CAD DRAFTER Oxygen Saturation 93% 04/03/2019 11:50 AM CDT Inhaled Oxygen Concentration - - Weight 64.9 kg (143 lb) 09/23/2019 12:30 PM CAD DRAFTER Height 162.6 cm (5' 4) 04/02/2019 11:09 AM CDT Body Mass Index 24.55 04/02/2019 11:09 AM CDT Plan of Treatment Health Maintenance Due Date Last Done Comments Tdap 01/07/1956 Depression screening for age 12+ 1957 BMI (ht and wt on same day) for age 18+ 1963 Hepatitis C screening for age 18-79 1963 Zoster (shingles) series for age 50+ (1 of 2) 01/06/19 95 Medicare Wellness for age 65+ 2010 Pneumococcal series for age 65+ (1 of 1 - PCV) 010 RSV vaccine for adults or pr egnancy (1 - 1-dose 75+ series) 01/07/2020 Tetanus booster 02/17/2020 02/16/2010 COVID-19 vaccine series (1 - 2023- season) 4 Influenza for age 65+ 07/07/2024 DEXA/DXA scan for age 65+ Completed 04/12/2011 Medical Devices Implanted Type Area Airline Pilot/First Officer Device Identifier Shelf Expiration Date Model / Serial / Lot Icd Only Implanted:03/2010 by Unknown, Doctor (Quantity not on file) ICD Only [employer] V-168 / [id number] / Procedures Procedure Name Priority Date/Time Associated Diagnosis Comments SCAN-BONE DENSITOMETRY DEXA 04/12/2011 12:00 AM CDT from Last 3 Months or Most Recently Relevant to Health Maintenance Results * SCAN-BONE DENSITOMETRY DEXA (04/12/2011 12:00 AM CDT) Anatomical Region Laterality Modality Other Narrative Procedure Note Scanner - 04/12/2011 12:00 AM CDT Scanner OTHER from Last 3 Months or Most Recently Relevant to Health Maintenance Advance Directives * Full Code (Latest Code Status on File) Date Activated Date Inactivated Comments 04/03/2019 7:05 AM 04/03/2019 12:26 PM * Full Code Date Activated Date Inactivated Comments 03/04/2019 8:34 PM 03/05/2019 6:18 PM Question Answer Comments Code Status Discussion: Discussed * Full Code Date Activated Date Inactivated Comments 11/23/2017 9:10 AM 11/23/2017 3:51 PM Care Teams Hide Buyer Relationship Specialty Start Date End Date Dago Cleaning MD PCP - General Family Practice 05/28/14
[2024-09-16 11:12] LABS: Basophils Percent Auto 0.3 % (0.0-3.0); Eosinophils Percent Auto 0.4 % (0.0-7.0); Hemoglobin* 13.5 gm/dL (12.0-16.0); Immature Granulocytes Pct Auto 0.4 %; Lymphocytes Percent Auto 3.4 % (20-44); Mean Corpuscular HGB Conc 33 gm/dL (32-36); Mean Corpuscular Hemoglobin 28 pg (26-34); Mean Corpuscular Volume 85 fL (80-100); Monocytes Percent Auto 5.3 % (0.0-11.0); Neutrophils Percent Auto 90.2 % (42.0-72.0); Platelet Count* 370 K/uL (140-440); RDW Coefficient of Variation % 13.6 % (11.5-15.5); Red Blood Count 4.85 m/uL (4.00-5.20); White Blood Count* 11.12 K/uL (4.50-11.00)
[2024-09-16 11:13] LABS: Slide Review Reflex No
[2024-09-16] MEDS: 0.9 % SODIUM CHLORIDE 500 ML 500 ML IV (11:15)
[2024-09-16 11:22] LABS: Chloride* 94 mmol/L (96-114)
[2024-09-16 11:23] LABS: Potassium* 4.1 mmol/L (3.6-5.1); Sodium* 127 mmol/L (135-149)
[2024-09-16 11:25] LABS: Est. Creatinine Clearance* 18.87; Estimated Glomerular Filt Rate 25 ml/min
[2024-09-16 11:26] LABS: Anion Gap 14 mEq/L (7-15); Blood Urea Nitrogen* 53 mg/dL (7-30); Calcium* 9.5 mg/dL (8.4-10.6); Carbon Dioxide* 19 mmol/L (20-32); Glucose* 150 mg/dL (60-115)
[2024-09-16 11:32] LABS: PCR FLU A Negative PCR FLU A (Negative); PCR FLU B Negative PCR FLU B (Negative); SARS PCR* Negative SARS-CoV-2 (Negative)
[2024-09-16 11:38] LABS: NT Pro B Type NatriureticPept* 2000 pg/mL; Troponin I* 0.04 ng/mL (0.01-0.04)
[2024-09-16] MEDS: cefTRIAXone 1 GM in 0.9 % SODIUM CHLORIDE Mini-bag 100 ML IVPB (12:52)
[2024-09-16 12:56] LABS: Appearance Urine Clear (Clear); Bilirubin Urine Negative (Negative); Blood Urine Trace-intact (Negative); Color Urine Yellow (Yellow); Glucose Urine Negative (Negative); Ketones Urine Negative (Negative); Leukocyte Esterase Urine 1+ (Negative); Nitrite Urine Positive (Negative); Protein Urine Negative (Negative); Specific Gravity Urine 1.015 (1.000-1.030); Urobilinogen Urine 0.2 (0.2-1.0)
[2024-09-16 13:06] LABS: Bacteria Urine Moderate; Squamous Epithelial Cell Urine Few (None-Few)
[2024-09-16] MEDS: AZITHROMYCIN 500 MG in 0.9 % SODIUM CHLORIDE 250 ml 250 ML 255 MG IVPB (13:16)
[2024-09-16] MEDS: 0.9 % SODIUM CHLORIDE 1000 ml 500 ML 35 ML IV (14:49)
--- NOTE | 2024-09-16 14:53 | P.IMHP_ITS ---
Documented by User: Kelly Trejo MD 09/16/24 15:57 Hospitalist- H&P: HPI History of Present Illness Time Seen by Provider: 13:00 Date Seen: 09/16/24 Chief complaint: weakness Narrative: Rupali Nieves is a 79 year old female with a history of lung cancer, dementia, hypothyroidism, heart failure, atrial fibrillation, ICD, coronary disease, hypertension and hyperlipidemia who has been fatigued and short of breath since last least. Her son, Solis, who is with her today states that he thought something was off last Monday number as she was short of breath when they got to the house after walking about 75 ft from the truck to the house, but when he asked her if she was feeling okay she said she was and that there was nothing wrong. She lives at her home and her son, Arnold, moved in with her while ago to look after her as they noted were dementia symptoms. She still takes care of her own medications and takes them regularly, according to her son Solis. She has a history of tobacco use which she quit in 2014. In 2018 she was diagnosed with squamous cell carcinoma of the right lung, stage III, which was treated with chemotherapy and radiation. She started immunotherapy, but was lost to follow-up during COVND. She last saw Dr. Larsen from Oncology 02/23/[address] at that time due to poor kidney function. She was supposed to have repeat noncontrast CTs every 6 months. Rupali tells me that s he has had them done here, but there is no record of these. I checked [facility] and [place] records and there either. We discussed code status and talked about what she would want done if this was cancer. He she is adamant that she does not want resuscitative efforts or mechanical ventilation or intubation. At 1st she was hesitant to accept CPAP arrived Pap, but ultimately she did decided that would be okay to try this hospital stay. She said that if this is cancer, she would ?just . ? I asked her if she would consider chemotherapy if that were an option, and she said via ?I suppose I would do whatever they told me to do.? I asked her if she would want hospice and she said ?no, I would just .? Her son, Solis, was in the room during this discussion. In the emergency department today, she had he had a chest x-ray and noncontrast CT chest (due to creatinine of 2) which showed a large loculated right pleural effusion and there is concern for progression of lung cancer. She remains tachycardic, narrow complex, possibly due junctional versus SVT versus atrial flutter with 2-1 conduction. Review of Systems Status of ROS: Reports: 10 or more systems reviewed and unremarkable except as noted in History and below [facility] Medical History (Updated 09/16/24 @ 15:57 by Kelly Trejo MD) Hypothyroidism ?E03.9 - Hypothyroidism, unspecified (ICD-10) Dementia ?F03.90 - Unspecified dementia without behavioral disturbance (ICD-10) Adenomatous polyp of colon ?D12.6 - Benign neoplasm of colon, unspecified (ICD-10) Congestive heart failure ?I50.9 - Heart failure, unspecified (ICD-10) Arteriosclerotic cardiovascular disease (04/19/11) ?I25.10 - Atherosclerotic heart disease of [place] coronary artery without angina pectoris (ICD-10) Implantable cardioverter-defibrillator (ICD) discharge ?Z45.02 - Encounter for adjustment and management of automatic implantable cardiac defibrillator (ICD-10) Tobacco use ?Z72.0 - Tobacco use (ICD-10) Hyperlipidemia (04/19/11) ?E78.5 - Hyperlipidemia, unspecified (ICD-10) Atrial fibrillation and flutter ?I48.91 - Unspecified atrial fibrillation (ICD-10) ?I48.92 - Unspecified atrial flutter (ICD-10) Essential hypertension (04/19/11) ?I10 - Essential (primary) hypertension (ICD-10) 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 Her older son, Solis is with her today. Quit tobacco use in 2015. Denies EtOH use. Adamantly DNR/DNI. Did not want BiPAP or CPAP initially, but has changed her mind and wants to give it a try. What is your current living situation?: I presently have a place to live Problems where you live: no known problems In the past 12 months, utilities in danger of being shut off: no In the past 12 mos, have been you worried that your food would run out before you had money to buy more?: never true In the past 12 mos, the food you bought just didn't last and you didn't have money to buy more?: never true Are you following a diet prescribed by a doctor: No Are you following a special diet: No Smoking Status: Former smoker How often do you have a drink containing alcohol: never How often do you have six or more drinks on one occasion: Never AUDIT-C Alcohol total score: 0 Non-prescribed substance use: denies use Caffeine: Yes How often does anyone, including family, friends and others, physically hurt you : never How often does anyone, including family, friends and others, insult or talk down to you: never How often does anyone, including family, friends and others, threaten you with harm: never How often does anyone, including family, friends and others, scream or curse at you: decline to answer Little interest or pleasure in doing things: more than half the days Feeling down, depressed, or hopeless: nearly every day Meds Home Medications and Allergies Home Medications ?Medication ?Instructions ?Recorded ?Confirmed ?Type acetaminophen 325 mg capsule 650 mg PO Q6H PRN 08/04/22 09/16/24 History (Tylenol) Allergies Allergy/AdvReac Type Severity Reaction Status Date / Time penicillin V Allergy Mild swelling Verified 09/16/24 10:26 Exam Narrative: Exam Narrative: General: Respiratory distress. Fatigued, pale. No diaphoresis. Thin extremities with muscle wasting. HEENT: Normocephalic atraumatic, pupils equally round and reactive to light and accommodation. Oropharynx clear. Mucous membranes are slightly dry. No cervical lymphadenopathy, thyromegaly or carotid bruits. No JVD. Cardiovascular: Tachycardic, regular. No murmurs, gallops, or rubs. Chest: Coarse throughout left lung field with crackles at the base, no wheezes, no breath sounds over the right lung field. Abdomen: Bowel sounds present. Soft, nondistended, nontender. No hepatosplenomegaly or masses. Extremities: No edema, no cyanosis or clubbing. Muscle wasting. Skin: No jaundice, no rashes. Neuro: Grossly intact. No focal deficits. Const: Vital Signs, click to edit/add: Vital Signs - 24 hr 09/16/24 10:18 09/16/24 13:40 09/16/24 14:16 Temperature 96.4 F L Pulse Rate [Pulse Oximeter] 131 H Respiratory Rate 22 32 H 38 H Blood Pressure [Le ft Upper Arm] 109/84 Pulse Oximetry 89 92 91 Oxygen Delivery Me thod Room Air Nasal Cannula Oxygen Flow Rate 2 2 Hospitalist - H&P: Result Labs Labs: Short CBC 09/16/24 Range/Units 11:00 WBC 11.12 H (4.50-11.00) K/uL Hgb 13.5 (12.0-16.0) gm/dL Hct 41.0 (33.0-51.0) % Plt Count 370 (140-440) K/uL BMP 09/16/24 11:00 Sodium 127 L Potassium 4.1 Chloride 94 L Carbon Dioxide 19 L BUN 53 H Creatinine 2.0 H Glucose 150 H Calcium 9.5 Cardiac Enzymes 09/16/24 Range/Units 11:00 Troponin I 0.04 (0.01-0.04) ng/mL Urine 09/16/24 Range/Units 12:44 Urine Color Yellow (Yellow) Urine Appearance Clear (Clear) Urine pH 5.0 (5.0-8.5) Ur Specific Yancey 1.015 (1.000-1.030) Urine Protein Negative (Negative) Urine Glucose (UA) Negative (Negative) 09/16/2024 EKG done in the emergency room: Supraventricular tachycardia, 131 beats per minute, anterolateral infarct, age undetermined. 09/16/2024 EKG upon arrival to the CCU: Accelerated junctional rhythm, anterolateral infarct, age undetermined. Ordering Physician: Alverto Elise M.D. Date of Service: 09/16/24 Procedure(s): XR chest 1V portable Accession Number(s): [id number] cc: Alverto Elise M.D.; Dago Cleaning M.D.~ For Patients: As a result of the 21st Century Cures Act, medical imaging exams and procedure reports are released immediately into your electronic medical record. You may view this report before your referring provider. If you have questions, please contact your health care provider. Indication: Shortness of breath Technique: Chest 1 view Comparison: Chest x-ray 11/13/2020 Findings/Impression: Cardiovascular and mediastinum: Cardiomegaly with left-sided single lead pacemaker with tip at the expected right ventricle. Aortic tortuosity with atherosclerotic calcification. Right-sided Port-A-Cath with tip at the cavoatrial junction. Lungs and pleural space: Opacified right hemithorax, question underlying pleural effusion/consolidation. Some reticular interstitial prominence within the left lung, possible pulmonary edema. Bones and soft tissues: No acute findings. Dictated by Marin Marie MD @ 09/16/2024 11:00:20 AM (Electronically Signed) Ordering Physician: Alverto Elise M.D. Date of Service: 09/16/24 Procedure(s): CT chest wo con Accession Number(s): [id number] cc: Alverto Elise M.D.; Dago Cleaning M.D.~ Patient: RUPALI NIEVES Facility: [facility] Site . Site : 1945 Study: CT-Chest WITHOUT-09/16/2024 11:30:11 AM Ordering Physician: Arik Del Toro Final Report: INDICATION: History of stage III right lung cancer. TECHNIQUE: CT chest without contrast. COMPARISON: CT chest August 2023 FINDINGS: Lungs and pleura: There is interval development of large partially loculated right-sided pleural effusion with near complete lung collapse. There is occlusion of the right segmental upper lobe bronchi as well as right lower lobe bronchi. Peripheral hyperdense materials are identified within the collapsed lung parenchyma, which is new in comparison to previous CT, which could be related to posttreatment changes or chronic aspiration. Limited assessment for the mass recurrence on noncontrast exam. The detail evaluation motion degraded rotation limits for the left lung parenchyma. There are scattered d subsegmental atelectasis. No left effusion or pneumothorax Stable mild cardiomegaly with partially loculated minimal pericardial effusion. Right-sided Pcmekf-[id number]-[id number] catheter is in place. Cardiac pacemaker defibrillator is identified and it is in position. Thoracic aorta and pulmonary artery are of normal caliber. There is advanced atherosclerotic disease of the aorta.333 New enlarged mediastinal lymph, largest in the right paratracheal location measures 2.0 x 1.6 centimeter in the diameter. Lymph nodes are also identified into the prevascular space, subcarinal location. Partially imaged upper abdomen demonstrates thickening of the left adrenal gland, similar to previous exam. Scattered degenerative changes of the spine. IMPRESSION: History of stage III right lung cancer. Findings are concerning for disease progression with development of large partially loculated right pleural effusion and near complete collapse of the right lung field. New minimal loculated pericardial effusion. New multiple mediastinal lymph nodes including subcarinal lymph nodes. Uncertain etiology of the peripheral hyperdensities within the collapsed right lung parenchyma, can be seen with posttreatment changes or chronic aspiration. Please note that all CT scans at this facility use dose modulation, iterative reconstruction, and/or weight-based dosing when appropriate to reduce radiation dose to as low as reasonably achievable. Dictated by Rory Sutton MD @ 09/16/2024 11:46:57 AM Signed by: Rory Sutton MD @09/16/2024 11:46:57 AM (Electronic Signature) Dictated By: Rory Sutton M.D. Signed By: 09/16/24 1447 DD/ 1146 TD/TT: 09/16/24 1446 Administrative Services Director: AM Assessment and Plan Assessment and plan (1) Acute hypoxemic respiratory failure: Problem comment: - Mod respiratory distress - Check VBG - Start BIPAP, will hold this for thoracentesis and may be able to stop it after that procedure - I do not think she is hypervolemic - RT consult - Low dose morphine prn for air hunger Status: Acute (2) Pleural effusion: Problem comment: - Large right pleural effusion with h/o lung cancer, suspect malignant - I spoke with Dr. Barrientos from general surgery who will come and do an US guided thoracentesis today for diagnostic purposes Status: Acute (3) Stage III squamous cell carcinoma of lung: Problem comment: Patient was treated with chemo and radiation. CT stable 08/2023 Status: Chronic (4) Atrial fibrillation with RVR: Problem comment: - Although EKG reads SVT, I suspect afib with RVR due to h/o afib. Patient has an ICD, so I will give metoprolol and see what happens with the rhythm and HR. Monitor on tele. I note troponin is wnl. - Continue apixaban Status: Acute (5) Hyponatremia: Problem comment: - suspect secondary to recurrent lung cancer. Asymptomatic. Start saline at 30 mL/hour, obtain thoracentesis for diagnostic purposes and recheck sodium in the morning. Status: Acute (6) Essential hypertension: Problem comment: - Hold HCTZ and lisinopril Status: Chronic (7) Hyperlipidemia: Problem comment: - Continue rosuvastatin Status: Chronic (8) Dementia: Status: Chronic (9) Implantable cardioverter-defibrillator (ICD) discharge: Status: Chronic (10) Hypothyroidism: Problem comment: - TSH is within normal limits. Continue current dose of levothyroxine. Status: Chronic (11) Chronic kidney disease, stage 4 (severe): Problem comment: - creatinine at 2 today is near baseline of 1.9. Eliquis is renally dosed. Status: Acute Documented by User: Roxanne Barrientos MD 09/16/24 15:09 Hospitalist- H&P: HPI History of Present Illness Date Seen: 09/16/24 Chief complaint: weakness [facility] Medical History (Updated 09/16/24 @ 15:57 by Kelly Trejo MD) Hypothyroidism ?E03.9 - Hypothyroidism, unspecified (ICD-10) Dementia ?F03.90 - Unspecified dementia without behavioral disturbance (ICD-10) Adenomatous polyp of colon ?D12.6 - Benign neoplasm of colon, unspecified (ICD-10) Congestive heart failure ?I50.9 - Heart failure, unspecified (ICD-10) Arteriosclerotic cardiovascular disease (04/19/11) ?I25.10 - Atherosclerotic heart disease of [place] coronary artery without angina pectoris (ICD-10) Implantable cardioverter-defibrillator (ICD) discharge ?Z45.02 - Encounter for adjustment and management of automatic implantable cardiac defibrillator (ICD-10) Tobacco use ?Z72.0 - Tobacco use (ICD-10) Hyperlipidemia (04/19/11) ?E78.5 - Hyperlipidemia, unspecified (ICD-10) Atrial fibrillation and flutter ?I48.91 - Unspecified atrial fibrillation (ICD-10) ?I48.92 - Unspecified atrial flutter (ICD-10) Essential hypertension (04/19/11) ?I10 - Essential (primary) hypertension (ICD-10) 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 Her older son, Solis is with her today. Quit tobacco use in 2014. Denies EtOH use. Adamantly DNR/DNI. Did not want BiPAP or CPAP initially, but has changed her mind and wants to give it a try. What is your current living situation?: I presently have a place to live Problems where you live: no known problems In the past 12 months, utilities in danger of being shut off: no In the past 12 mos, have been you worried that your food would run out before you had money to buy more?: never true In the past 12 mos, the food you bought just didn't last and you didn't have money to buy more?: never true Are you following a diet prescribed by a doctor: No Are you following a special diet: No Smoking Status: Former smoker How often do you have a drink containing alcohol: never How often do you have six or more drinks on one occasion: Never AUDIT-C Alcohol total score: 0 Non-prescribed substance use: denies use Caffeine: Yes How often does anyone, including family, friends and others, physically hurt you : never How often does anyone, including family, friends and others, insult or talk down to you: never How often does anyone, including family, friends and others, threaten you with harm: never How often does anyone, including family, friends and others, scream or curse at you: decline to answer Little interest or pleasure in doing things: more than half the days Feeling down, depressed, or hopeless: nearly every day Meds Home Medications and Allergies Home Medications ?Medication ?Instructions ?Recorded ?Confirmed ?Type acetaminophen 325 mg capsule 650 mg PO Q6H PRN 08/04/22 09/16/24 History (Tylenol) Allergies Allergy/AdvReac Type Severity Reaction Status Date / Time penicillin V Allergy Mild swelling Verified 09/16/24 10:26 Assessment and Plan Assessment and plan (1) Acute hypoxemic respiratory failure: Problem comment: - Mod respiratory distress - Check VBG - Start BIPAP, will hold this for thoracentesis and may be able to stop it after that procedure - I do not think she is hypervolemic - RT consult - Low dose morphine prn for air hunger Status: Acute (2) Pleural effusion: Problem comment: - Large right pleural effusion with h/o lung cancer, suspect malignant - I spoke with Dr. Barrientos from general surgery who will come and do an US guided thoracentesis today for diagnostic purposes Status: Acute (3) Stage III squamous cell carcinoma of lung: Problem comment: Patient was treated with chemo and radiation. CT stable 08/2023 Status: Chronic (4) Atrial fibrillation with RVR: Problem comment: - Although EKG reads SVT, I suspect afib with RVR due to h/o afib. Patient has an ICD, so I will give metoprolol and see what happens with the rhythm and HR. Monitor on tele. I note troponin is wnl. - Continue apixaban Status: Acute (5) Hyponatremia: Problem comment: - suspect secondary to recurrent lung cancer. Asymptomatic. Start saline at 30 mL/hour, obtain thoracentesis for diagnostic purposes and recheck sodium in the morning. Status: Acute (6) Essential hypertension: Problem comment: - Hold HCTZ and lisinopril Status: Chronic (7) Hyperlipidemia: Problem comment: - Continue rosuvastatin Status: Chronic (8) Dementia: Status: Chronic (9) Implantable cardioverter-defibrillator (ICD) discharge: Status: Chronic (10) Hypothyroidism: Problem comment: - TSH is within normal limits. Continue current dose of levothyroxine. Status: Chronic (11) Chronic kidney disease, stage 4 (severe): Problem comment: - creatinine at 2 today is near baseline of 1.9. Eliquis is renally dosed. Status: Acute
--- NOTE | 2024-09-16 14:57 | P.GSCN_ITS ---
History of Present Illness Consult details Date Seen: 09/16/24 Consult date: 09/16/24 Narrative: The patient is a 79-year-old female with a history of lung cancer treated with chemotherapy and radiation in 2019, atrial fibrillation on Eliquis, ICD, tobacco abuse, coronary artery disease, CHF with ejection fraction of 30% who presented to the emergency department with weakness. The patient lives independently and states that she has been feeling weak with no energy for approximately 1 week. She denies shortness of breath but was noted to be tachypneic in the emergency department. Denies abdominal pain. She has not taken any of her medication this morning. She was not aware that she was on a blood thinner. She was diagnosed with an 8 cm mass in the right upper lobe in 2019. Bronchoscopic biopsy showed non-small cell carcinoma. She also underwent right upper lobe robotic assisted lung biopsy and bronchial alveolar lavage. This was also positive for squamous cell carcinoma. She was treated with chemo radiation. Her last visit with Oncology was in February of 2023. She was getting surveillance imaging every 6 months, last CT scan was 1 year ago which was stable. [facility] Medical History (Updated 09/16/24 @ 15:57 by Kelly Trejo MD) Hypothyroidism ?E03.9 - Hypothyroidism, unspecified (ICD-10) Dementia ?F03.90 - Unspecified dementia without behavioral disturbance (ICD-10) Adenomatous polyp of colon ?D12.6 - Benign neoplasm of colon, unspecified (ICD-10) Congestive heart failure ?I50.9 - Heart failure, unspecified (ICD-10) Arteriosclerotic cardiovascular disease (04/19/11) ?I25.10 - Atherosclerotic heart disease of [place] coronary artery without angina pectoris (ICD-10) Implantable cardioverter-defibrillator (ICD) discharge ?Z45.02 - Encounter for adjustment and management of automatic implantable cardiac defibrillator (ICD-10) Tobacco use ?Z72.0 - Tobacco use (ICD-10) Hyperlipidemia (04/19/11) ?E78.5 - Hyperlipidemia, unspecified (ICD-10) Atrial fibrillation and flutter ?I48.91 - Unspecified atrial fibrillation (ICD-10) ?I48.92 - Unspecified atrial flutter (ICD-10) Essential hypertension (04/19/11) ?I10 - Essential (primary) hypertension (ICD-10) 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 Her older son, Solis is with her today. Quit tobacco use in 2014. Denies EtOH use. Adamantly DNR/DNI. Did not want BiPAP or CPAP initially, but has changed her mind and wants to give it a try. What is your current living situation?: I presently have a place to live Problems where you live: no known problems In the past 12 months, utilities in danger of being shut off: no In the past 12 mos, have been you worried that your food would run out before you had money to buy more?: never true In the past 12 mos, the food you bought just didn't last and you didn't have money to buy more?: never true Are you following a diet prescribed by a doctor: No Are you following a special diet: No Smoking Status: Former smoker How often do you have a drink containing alcohol: never How often do you have six or more drinks on one occasion: Never AUDIT-C Alcohol total score: 0 Non-prescribed substance use: denies use Caffeine: Yes How often does anyone, including family, friends and others, physically hurt you : never How often does anyone, including family, friends and others, insult or talk down to you: never How often does anyone, including family, friends and others, threaten you with harm: never How often does anyone, including family, friends and others, scream or curse at you: decline to answer Meds Home Medications and Allergies Home Medications ?Medication ?Instructions ?Recorded ?Confirmed ?Type acetaminophen 325 mg capsule 650 mg PO Q6H PRN 08/04/22 09/16/24 History (Tylenol) Allergies Allergy/AdvReac Type Severity Reaction Status Date / Time penicillin V Allergy Mild swelling Verified 09/16/24 10:26 Exam Narrative: Exam Narrative: General: No acute distress, patient is resting comfortably on BiPAP though is tachypneic. CV: Tachycardic Respiratory: Patient is tachypneic. When BiPAP is removed she has absent lung sounds at the right base. Left lung is clear. Const: Vital Signs, click to edit/add: Vital Signs - 24 hr 09/16/24 10:18 09/16/24 10:32 09/16/24 10:45 Temperature 96.4 F L Pulse Rate 131 H 131 H Pulse Rate [Pulse Oximeter] 131 H Respiratory Rate 22 Blood Pressure Blood Pressure [Le ft Upper Arm] 109/84 Pulse Oximetry 89 93 92 Oxygen Delivery Me thod Room Air Oxygen Flow Rate 09/16/24 11:00 09/16/24 11:15 09/16/24 11:16 Temperature Pulse Rate 132 H 131 H 133 H Pulse Rate [Pulse Oximeter] Respiratory Rate Blood Pressure 93/73 Blood Pressure [Le ft Upper Arm] Pulse Oximetry 92 94 89 Oxygen Delivery Me thod Oxygen Flow Rate 09/16/24 11:31 09/16/24 11:37 09/16/24 11:41 Temperature Pulse Rate 132 H 134 H 128 H Pulse Rate [Pulse Oximeter] Respiratory Rate Blood Pressure 95/61 99/64 Blood Pressure [Le ft Upper Arm] Pulse Oximetry 90 93 95 Oxygen Delivery Me thod Oxygen Flow Rate 09/16/24 11:45 09/16/24 12:00 09/16/24 12:01 Temperature Pulse Rate 130 H 133 H 129 H Pulse Rate [Pulse Oximeter] Respiratory Rate Blood Pressure 90/61 Blood Pressure [Le ft Upper Arm] Pulse Oximetry 95 94 94 Oxygen Delivery Me thod Oxygen Flow Rate 09/16/24 12:15 09/16/24 12:21 09/16/24 12:25 Temperature Pulse Rate 129 H 129 H 130 H Pulse Rate [Pulse Oximeter] Respiratory Rate Blood Pressure 78/63 L 104/82 Blood Pressure [Le ft Upper Arm] Pulse Oximetry 98 98 94 Oxygen Delivery Me thod Oxygen Flow Rate 09/16/24 12:30 09/16/24 12:42 09/16/24 12:45 Temperature Pulse Rate 134 H 127 H 128 H Pulse Rate [Pulse Oximeter] Respiratory Rate Blood Pressure 110/75 Blood Pressure [Le ft Upper Arm] Pulse Oximetry 93 90 94 Oxygen Delivery Me thod Oxygen Flow Rate 09/16/24 13:00 09/16/24 13:01 09/16/24 13:40 Temperature Pulse Rate 131 H Pulse Rate [Pulse Oximeter] Respiratory Rate 32 H Blood Pressure 106/71 Blood Pressure [Le ft Upper Arm] Pulse Oximetry 91 92 Oxygen Delivery Me thod Oxygen Flow Rate 2 09/16/24 14:16 09/16/24 14:48 09/16/24 14:49 Temperature Pulse Rate 129 H 129 H Pulse Rate [Pulse Oximeter] Respiratory Rate 38 H Blood Pressure 118/74 Blood Pressure [Le ft Upper Arm] Pulse Oximetry 91 99 98 Oxygen Delivery Me thod Nasal Cannula Oxygen Flow Rate 2 Results Labs Labs: Abnormal lab results 09/16/24 09/16/24 Range/Units 11:00 12:44 WBC 11.12 H (4.50-11.00) K/uL Neut % (Auto) 90.2 H (42.0-72.0) % Lymph % (Auto) 3.4 L (20-44) % Neut # (Auto) 10.00 H (1.7-7.0) K/uL Lymph # (Auto) 0.40 L (0.90-2.90) K/uL VBG pCO2 36 L (40-50) mmHG Sodium 127 L (135-149) mmol/L Chloride 94 L (96-114) mmol/L Carbon Dioxide 19 L (20-32) mmol/L BUN 53 H (7-30) mg/dL Creatinine 2.0 H (0.5-1.5) mg/dL Glucose 150 H (60-115) mg/dL Urine Blood Trace-intact A (Negative) Urine Nitrite Positive A (Negative) Ur Leukocyte Esterase 1+ A (Negative) Urine RBC 5-10 A (0-2) Urine WBC 5-10 A (0-5) Urine Bacteria Moderate A (None) POC Creatinine 2.2 H (0.6-1.3) mg/dl Diabetes panel 09/16/24 Range/Units 11:00 Sodium 127 L (135-149) mmol/L Potassium 4.1 (3.6-5.1) mmol/L Chloride 94 L (96-114) mmol/L Carbon Dioxide 19 L (20-32) mmol/L BUN 53 H (7-30) mg/dL Creatinine 2.0 H (0.5-1.5) mg/dL Glucose 150 H (60-115) mg/dL Calcium 9.5 (8.4-10.6) mg/dL Thyroid panel 09/16/24 Range/Units 11:00 TSH 3.020 (0.270-4.200) uIU/mL Calcium panel 09/16/24 Range/Units 11:00 Calcium 9.5 (8.4-10.6) mg/dL Pituitary panel 09/16/24 Range/Units 11:00 Sodium 127 L (135-149) mmol/L Potassium 4.1 (3.6-5.1) mmol/L Chloride 94 L (96-114) mmol/L Carbon Dioxide 19 L (20-32) mmol/L BUN 53 H (7-30) mg/dL Creatinine 2.0 H (0.5-1.5) mg/dL Glucose 150 H (60-115) mg/dL Calcium 9.5 (8.4-10.6) mg/dL TSH 3.020 (0.270-4.200) uIU/mL Adrenal panel 09/16/24 Range/Units 11:00 Sodium 127 L (135-149) mmol/L Potassium 4.1 (3.6-5.1) mmol/L Chloride 94 L (96-114) mmol/L Carbon Dioxide 19 L (20-32) mmol/L BUN 53 H (7-30) mg/dL Creatinine 2.0 H (0.5-1.5) mg/dL Glucose 150 H (60-115) mg/dL Calcium 9.5 (8.4-10.6) mg/dL All other labs normal. Imaging Chest x-ray: report reviewed and image reviewed CT scan - chest: report reviewed and image reviewed Additional studies: Chest CT from 08/28/2023 was reviewed. There is post treatment changes to the right upper lung with scarring and volume loss noted. No pleural effusion was noted. Chest CT done in the emergency department today: IMPRESSION: History of stage III right lung cancer. Findings are concerning for disease progression with development of large partially loculated right pleural effusion and near complete collapse of the right lung field. New minimal loculated pericardial effusion. New multiple mediastinal lymph nodes including subcarinal lymph nodes. Uncertain etiology of the peripheral hyperdensities within the collapsed right lung parenchyma, can be seen with posttreatment changes or chronic aspiration. Dictated by Rory Sutton MD @ 09/16/2024 11:46:57 AM Chest x-ray done today: Findings/Impression: Cardiovascular and mediastinum: Cardiomegaly with left-sided single lead pacemaker with tip at the expected right ventricle. Aortic tortuosity with atherosclerotic calcification. Right-sided Port-A-Cath with tip at the cavoatrial junction. Lungs and pleural space: Opacified right hemithorax, question underlying pleural effusion/consolidation. Some reticular interstitial prominence within the left lung, possible pulmonary edema. Bones and soft tissues: No acute findings. 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 The patient is a poor historian and does take Eliquis, however she states that she has not taken her medication this morning. With reduced renal function, she may take longer to clear this medication. Therefore, she is at slightly higher risk for bleeding. However, given her overall clinical picture I do think thoracentesis for diagnostic and therapeutic purposes is reasonable to perform today at bedside. I explained to the patient and her son that I will likely not be able to remove all the fluid because of risk of re-expansion pulmonary edema. She may also need additional procedures going forward as the fluid will likely reaccumulate. Her son was agreeable to proceed and signed informed consent for the patient.
[2024-09-16 15:29] LABS: HCO3 VBG 21 mmol/L (21-28); PCO2 VBG 41 mmHG (40-50); PO2 VBG 41.3 mmHG (25-47); pH VBG 7.316 (7.32-7.43)
--- NOTE | 2024-09-16 15:56 | RESP.RT ---
Pt. placed on BIPAP per provider concern for respiratory failure. RR 45, unable to catch her breath. PT is awaiting a thoracentesis. I had concerns about placing BIPAP on her. Talked with provider, and agreed to try it with lower settings and constant BP and HR measurment. She has done ok with it. VSS have stayed stable. She did rest on BiPAP, and RR did come down to 35. Using FiO2 of 45%, watching her saturations. Asked for a VBG, RN drawing from her port. Continue close monitoring until surgeon her for procedure.
--- NOTE | 2024-09-16 16:38 | P.PCN_ITS ---
Procedure Note Date Seen: 09/16/24 Will [facility] bill your pro fee for this procedure?: Yes Pre-op diagnosis: Right pleural effusion Post-op diagnosis: same Procedure: Ultrasound-guided right thoracentesis Procedure Description: After discussion of the risks and benefits the patient was placed in a seated position leaning over a table. Ultrasound guidance was used to identify the effusion. Once this was done the site was marked. The area was prepped and draped in the usual sterile fashion. Local anesthetic was used to anesthetize the skin and subcutaneous tissue down to the rib. Once the rib was encountered, the needle was advanced over the top of the rib into the pleural space. This was confirmed by the aspiration of straw-colored fluid. A skin lewis was made with an 11 blade. The thoracentesis catheter was advanced into the pleural cavity while aspirating. Once the pleural fluid was aspirated confirming entrance into the chest cavity, the needle was removed and the sheath advanced. 800 mL of fluid were then aspirated. The patient cough it and concurrently the fluid stopped coming. Ultrasound was placed on the chest wall. There was still a sizable pocket of fluid, however the lung could be seen within the pocket. Presumably this was abutting the catheter tip. The catheter was then removed and an occlusive dressing was applied. Specimens were sent for cell count, chemistry, cytology and culture Patient tolerated the procedure well. Estimated blood loss 1 mL Postprocedure chest x-ray revealed no pneumothorax. Anesthesia: local Pathology: specimen obtained, sent to pathology Condition: stable
--- NOTE | 2024-09-16 16:41 | CRLHL7_ITS ---
For Patients: As a result of the Cures Act, medical imaging exams and procedure reports are released immediately into your electronic medical record. You may view this report before your referring provider. If you have questions, please contact your health care provider. Indication: Status post thoracentesis. Technique: AP view of the chest. Comparison: Same day chest radiograph. Findings: Right internal jugular chest port with catheter tip at the superior cavoatrial junction. Left chest AICD with associated leads. Low lung volumes. Moderately enlarged cardiomediastinal silhouette with calcified aortic knob. Opacification of the right hemithorax. No pneumothorax is seen. Impression: Persistent opacification of the right hemithorax without visualized pneumothorax. Dictated by Roddy Kerr MD @ 09/16/2024 5:36:29 PM (Electronically Signed)
[2024-09-16] MEDS: METOPROLOL TARTRATE 1 MG/ML inj 5 MG IVP (16:49)
[2024-09-16] MEDS: METOPROLOL TARTRATE 25 MG TABLET PO ×2 (16:49→21:18)
[2024-09-16 17:17] LABS: Lactate Dehydrogenase* 227 U/L (120-246)
[2024-09-16 17:18] LABS: Total Protein* 6.4 g/dL (6.0-8.3)
--- NOTE | 2024-09-16 18:44 | PC.NURSE ---
AT 1500, PATIENT ON BIPAP. RR 34-38 AND TELE SHOWING HR 120'S WITH SINUS TACH/SVT. THORACENTESIS COMPLETED AT BEDSIDE BY DR. BENNETT AND 800MLS DRAINED. PATIENT TOLERATED PROCEDURE WITHOUT DIFFICULT. TRANSITIONED TO 2L O2 PER NC PRIOR TO THORACENTESIS AND CURRENTLY WEANED TO 1L WITH O2 SATS 90-93%. METOPROLOL IV AND PO ADMINISTERED. PATIENT HAD 10 MINUTE EPISODE OF ATRIAL FIBRILLATION WITH RVR AND RATE 100'S-120'S. RETURNED TO SINUS TACH WITH RATE 120'S.
[2024-09-16 18:53] LABS: Body Fluid Total Protein* 4.6 gm/dL; Glucose Body Fluid* 110 mg/dL
[2024-09-16 18:54] LABS: LDH Body Fluid* 349 U/L; Mononuclear WBC Body Fluid* 50 %; Polynuclear WBC Body Fluid* 50 %; RBC, Body Fluid* 0 Cells/uL; WBC, Body Fluid* 2 Cells/uL
[2024-09-16 18:55] LABS: pH Body Fluid* 7.5
[2024-09-16 18:56] LABS: BF Clarity* Clear; BF Color Xanthochromic; BF Total Volume* 18
--- NOTE | 2024-09-16 18:59 | PC.NURSE ---
The patient arrived to the floor this afternoon, noted to be hypoxia and on NC @ 2L/min. Tachypnea noted as well as accessory muscle use. Although the patient denied SOB. Tele noted to be tachycardic. The patient was also noted to be restless and could not get comfortable. R lung sounds absent. MD was notified of the patients struggle to get comfortable. Discussion of BIPAP use/ benefits were discussed with the patient and her son. Purewick was applied. The patient was agreeable to this. Level of care then changed to CCU. Radha VILLALTA BSN
[2024-09-17] VITALS (20 sets, daily range): BP systolic 80–121; BP diastolic 47–88; PULSE 91–129; RESP 22–40; TEMP 36.4–36.7; O2SAT 92–96
[2024-09-17] MEDS: METOPROLOL TARTRATE 25 MG TABLET PO ×2 (01:31→05:13)
[2024-09-17] MEDS: 0.9 % SODIUM CHLORIDE 1000 ml 500 ML 35 ML IV (05:15)
--- NOTE | 2024-09-17 06:11 | PC.NURSE ---
Shift note: BP 90ies, HR 120ies, scheduled Metoprolol administered with no changes in HR. Pt is SOB with any exertion, including repositioning in bed. She ambulated to the BS with assist of 1, 2L O2 NC, sats maintained above 90%.
[2024-09-17] MEDS: LEVOTHYROXINE 88 MCG TABLET PO (06:35)
[2024-09-17 06:46] LABS: Albumin* 3.3 g/dL (3.3-5.0); Chloride* 99 mmol/L (96-114); Potassium* 4.8 mmol/L (3.6-5.1); Sodium* 129 mmol/L (135-149)
[2024-09-17 06:49] LABS: Alanine Aminotransferase* 14 U/L (4-35); Alkaline Phosphatase* 98 U/L (40-150); Anion Gap 9 mEq/L (7-15); Aspartate Amino Transferase* 21 U/L (12-35); Bilirubin Total* 0.2 mg/dL (0.1-1.5); Blood Urea Nitrogen* 47 mg/dL (7-30); Carbon Dioxide* 21 mmol/L (20-32); Creatinine* 1.9 mg/dL (0.5-1.5); Est. Creatinine Clearance* 18.99; Estimated Glomerular Filt Rate 27 ml/min; Glucose* 107 mg/dL (60-115); Total Protein* 6.2 g/dL (6.0-8.3)
[2024-09-17 06:50] LABS: Calcium* 8.7 mg/dL (8.4-10.6)
[2024-09-17 06:52] LABS: Basophils Absolute Auto 0.03 K/uL (0.00-0.30); Basophils Percent Auto 0.3 % (0.0-3.0); Eosinophils Absolute Auto 0.08 K/uL (0.00-0.50); Eosinophils Percent Auto 0.8 % (0.0-7.0); Hematocrit 37.3 % (33.0-51.0); Immature Granulocytes Abs Auto 0.05 K/uL (0.00-0.30); Immature Granulocytes Pct Auto 0.5 %; Lymphocytes Percent Auto 5.5 % (20-44); Mean Corpuscular HGB Conc 32 gm/dL (32-36); Mean Corpuscular Hemoglobin 28 pg (26-34); Mean Corpuscular Volume 86 fL (80-100); Monocytes Percent Auto 7.6 % (0.0-11.0); Neutrophils Percent Auto 85.3 % (42.0-72.0); Platelet Count* 345 K/uL (140-440); RDW Coefficient of Variation % 13.7 % (11.5-15.5); Red Blood Count 4.35 m/uL (4.00-5.20); White Blood Count* 9.71 K/uL (4.50-11.00)
[2024-09-17 06:53] LABS: Slide Review Reflex No
[2024-09-17] MEDS: AZITHROMYCIN 250 MG TABLET PO (09:43)
[2024-09-17] MEDS: DIGOXIN 250 MCG/ML inj IV (09:43)
--- NOTE | 2024-09-17 10:21 | NUTR.NU ---
RDN with nutrition screen related to positive MST score for unsure weight loss recently and unsure appetite recently. Patient admitted with respiratory failure and right pleural effusion. Past medical history includes lung cancer not currently on treatment and dementia. Patient currently has son staying with her at her home. Current weight 148 lbs 2oz; height 5ft 3in; BMI 26.2 kg/m2. Per weight history, no significant weight changes within the last 180 days noted. Current diet is regular. Dinner on 09/16/24 was 100%. No nutrition interventions at this time due to adequate oral intake and stable weight. RDN will continue to monitor and follow-up prn.
--- NOTE | 2024-09-17 13:08 | PM.IMPN1 ---
Progress Note: A&P Assessment and plan (1) Acute hypoxemic respiratory failure: Problem details: - 09/17 s/p 800cc removed from R pleura via thoracentesis yesterday. Improved respiratory status. Comfortable, sats 96% on 2LPM NC. Cytology pending. Has h/o lung cancer, suspect this is a malignant effusion. 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 CT stable 08/2023 Status: Chronic (4) Atrial fibrillation with RVR: Problem details: - Although EKG reads SVT, I suspect afib with RVR due to h/o afib. Patient has an ICD - Trial of metoprolol overnight without success. BP low this morning, so I started stopped metoprolol and started digoxin load. BP much improved now. If no improvement with digoxin, may be able to start diltiazem. - Will need to discuss anticoagulation with patient and family when available. Status: Acute (5) Hyponatremia: Problem details: - suspect secondary to recurrent lung cancer. - 09/16 Asymptomatic. Start saline at 30 mL/hour, obtain thoracentesis for diagnostic purposes and recheck sodium in the morning. - 09/17 some improvement 127 to 129. Stop NS and monitor. Status: Acute (6) Dementia: Problem details: - MOCA . Unclear what her baseline is. Son not here today. Reorient frequently as needed. She is in a room near nurses station. - Will see how she does over the next day or so. Will likely need to stop driving and have someone else responsible for her medication management. Unclear yet if she will need 24/ supervision at home. Status: Chronic (7) Essential hypertension: Problem details: - Hold HCTZ due to hyponatremia. Try restarting lisinopril for BP. Status: Chronic (8) Hyperlipidemia: Problem details: - Continue rosuvastatin Status: Chronic (9) Hypothyroidism: Problem details: - TSH is within normal limits. Continue current dose of levothyroxine. Status: Chronic (10) Chronic kidney disease, stage 4 (severe): Problem details: - creatinine stable at baseline of 1.9. Status: Acute Subjective Time Seen by Provider: 08:00 Date Seen: 09/17/24 Interval history: Rupali feels much better today. SOB improving. Her son is at work this morning. No family at bedside this morning. Remains tachycardic. Denies dizziness, lightheadedness, CP, palpitations. Exam Narrative: Exam Narrative: General: No acute distress. On oxygen via NC. Comfortable sitting in bed. Awake, alert, oriented to self, place, and situation. HEENT: Oropharynx clear. Mucous membranes are moist. Cardiovascular: Tachycardic, regular. While I am in the room, I noticed that she has occasional irregularity/atrial fibrillation on the monitor. No murmurs, gallops, or rubs. Chest: No respiratory distress. Coarse throughout left lung field with crackles at the base, no wheezes, no breath sounds over the right lung field. Abdomen: Bowel sounds present. Soft, nondistended, nontender. Extremities: No edema, no cyanosis or clubbing. Muscle wasting. Const: Vital Signs, click to edit/add: Vital Signs - 24 hr 09/16/24 13:40 09/16/24 14:00 09/16/24 14:00 Temperature 97.5 F L Pulse Rate Pulse Rate [Right Pulse Oximeter] 129 H Respiratory Rate 32 H 32 H 32 H Blood Pressure Blood Pressure [Ri ght Arm] 110/75 Pulse Oximetry 92 92 92 Oxygen Delivery Me thod Nasal Cannula Nasal Cannula Oxygen Flow Rate 2 2 2 Fraction of Inspir ed Oxygen 09/16/24 14:16 09/16/24 14:48 09/16/24 14:49 Temperature Pulse Rate 129 H 129 H Pulse Rate [Right Pulse Oximeter] Respiratory Rate 38 H Blood Pressure 118/74 Blood Pressure [Ri ght Arm] Pulse Oximetry 91 99 98 Oxygen Delivery Me thod Nasal Cannula Oxygen Flow Rate 2 Fraction of Inspir ed Oxygen 09/16/24 14:58 09/16/24 15:00 09/16/24 15:00 Temperature Pulse Rate 129 H Pulse Rate [Right Pulse Oximeter] 126 H Respiratory Rate 34 H Blood Pressure Blood Pressure [Ri ght Arm] Pulse Oximetry 98 Oxygen Delivery Me thod Oxygen Flow Rate Fraction of Inspir ed Oxygen 09/16/24 15:00 09/16/24 15:45 09/16/24 15:54 Temperature 97.1 F L Pulse Rate Pulse Rate [Right Pulse Oximeter] 126 H Respiratory Rate 34 H Blood Pressure Blood Pressure [Ri ght Arm] 106/67 Pulse Oximetry 92 97 Oxygen Delivery Me thod Nasal Cannula BiPA P Oxygen Flow Rate 2 Fraction of Inspir ed Oxygen 45 09/16/24 16:00 09/16/24 16:10 09/16/24 16:20 Temperature Pulse Rate Pulse Rate [Right Pulse Oximeter] 122 H 135 H 126 H Respiratory Rate Blood Pressure Blood Pressure [Ri ght Arm] 121/80 123/52 L 121/67 Pulse Oximetry Oxygen Delivery Me thod Oxygen Flow Rate Fraction of Inspir ed Oxygen 09/16/24 16:30 09/16/24 16:40 09/16/24 16:45 Temperature Pulse Rate Pulse Rate [Right Pulse Oximeter] 127 H 123 H 127 H Respiratory Rate 30 H Blood Pressure Blood Pressure [Ri ght Arm] 118/66 97/67 114/69 Pulse Oximetry Oxygen Delivery Me thod Oxygen Flow Rate Fraction of Inspir ed Oxygen 09/16/24 17:00 09/16/24 17:10 09/16/24 17:30 Temperature Pulse Rate Pulse Rate [Right Pulse Oximeter] 124 H 119 H 122 H Respiratory Rate Blood Pressure Blood Pressure [Ri ght Arm] 103/56 L 112/90 H 115/69 Pulse Oximetry 92 Oxygen Delivery Me thod Nasal Cannula Oxygen Flow Rate 1.5 Fraction of Inspir ed Oxygen 09/16/24 17:45 09/16/24 18:00 09/16/24 18:15 Temperature Pulse Rate Pulse Rate [Right Pulse Oximeter] 124 H 130 H 118 H Respiratory Rate 30 H Blood Pressure Blood Pressure [Ri ght Arm] 108/73 107/60 96/55 L Pulse Oximetry 91 Oxygen Delivery Me thod Nasal Cannula Oxygen Flow Rate 1 Fraction of Inspir ed Oxygen 09/16/24 18:30 09/16/24 18:45 09/16/24 19:00 Temperature Pulse Rate Pulse Rate [Right Pulse Oximeter] 127 H 122 H 107 H Respiratory Rate Blood Pressure Blood Pressure [Ri ght Arm] 88/48 L 97/63 86/57 L Pulse Oximetry 91 93 93 Oxygen Delivery Me thod Nasal Cannula Nasal Cannula Nasal Cannula Oxygen Flow Rate 1 1 1 Fraction of Inspir ed Oxygen 09/16/24 19:00 09/16/24 21:00 09/16/24 21:31 Temperature 97 F L Pulse Rate Pulse Rate [Right Pulse Oximeter] 101 H 124 H 120 H Respiratory Rate 28 H 28 H Blood Pressure Blood Pressure [Ri ght Arm] 84/59 L 103/55 L Pulse Oximetry 92 Oxygen Delivery Me thod Nasal Cannula Oxygen Flow Rate 2 Fraction of Inspir ed Oxygen 45 09/16/24 23:00 09/16/24 23:00 09/16/24 23:00 Temperature Pulse Rate 126 H Pulse Rate [Right Pulse Oximeter] 120 H Respiratory Rate 26 H 26 H Blood Pressure Blood Pressure [Ri ght Arm] Pulse Oximetry 93 Oxygen Delivery Me thod Nasal Cannula Oxygen Flow Rate 2 Fraction of Inspir ed Oxygen 45 09/16/24 23:00 09/17/24 01:00 09/17/24 03:00 Temperature 97.3 F L Pulse Rate Pulse Rate [Right Pulse Oximeter] 126 H 126 H 126 H Respiratory Rate 26 H 22 28 H Blood Pressure Blood Pressure [Ri ght Arm] 92/66 93/63 Pulse Oximetry 93 92 Oxygen Delivery Me thod Nasal Cannula Nasal Cannula Oxygen Flow Rate 2 2 Fraction of Inspir ed Oxygen 45 09/17/24 03:00 09/17/24 04:35 09/17/24 05:19 Temperature 97.6 F 97.6 F Pulse Rate Pulse Rate [Right Pulse Oximeter] 100 113 H 126 H Respiratory Rate 26 H 24 28 H Blood Pressure Blood Pressure [Ri ght Arm] 83/60 L 82/50 L 99/72 Pulse Oximetry 94 94 93 Oxygen Delivery Me thod Nasal Cannula Nasal Cannula Nasal Cannula Oxygen Flow Rate 2 2 2 Fraction of Inspir ed Oxygen 45 09/17/24 07:46 09/17/24 08:00 09/17/24 08:00 Temperature Pulse Rate 91 Pulse Rate [Right Pulse Oximeter] 104 H Respiratory Rate 32 H Blood Pressure Blood Pressure [Ri ght Arm] Pulse Oximetry 92 Oxygen Delivery Me thod Nasal Cannula Oxygen Flow Rate 2 Fraction of Inspir ed Oxygen 09/17/24 08:00 09/17/24 09:00 09/17/24 09:43 Temperature 97.6 F Pulse Rate 120 H Pulse Rate [Right Pulse Oximeter] 104 H 114 H Respiratory Rate 32 H Blood Pressure Blood Pressure [Ri ght Arm] 89/75 L 104/63 Pulse Oximetry 93 92 Oxygen Delivery Me thod Nasal Cannula Nasal Cannula Oxygen Flow Rate 2 2 Fraction of Inspir ed Oxygen 09/17/24 10:00 09/17/24 10:35 09/17/24 11:00 Temperature 97.9 F 97.9 F Pulse Rate Pulse Rate [Right Pulse Oximeter] 124 H 129 H 129 H Respiratory Rate 34 H 36 H 34 H Blood Pressure Blood Pressure [Ri ght Arm] 100/88 105/66 166/65 H Pulse Oximetry 94 95 96 Oxygen Delivery Me thod Nasal Cannula Nasal Cannula Nasal Cannula Oxygen Flow Rate 2 2 2 Fraction of Inspir ed Oxygen Labs Labs: Laboratory Results - last 24 hr 09/16/24 09/16/24 09/16/24 14:59 15:18 16:53 WBC RBC Hgb Hct MCV MCH MCHC RDW Coeff of Brianne Plt Count Neut % (Auto) Lymph % (Auto) Williams % (Auto) Eos % (Auto) Baso % (Auto) Neut # (Auto) Lymph # (Auto) Williams # (Auto) Eos # (Auto) Baso # (Auto) Abs Immat Gran (auto) Imm/Tot Granulo (auto) VBG pH 7.316 L VBG pCO2 41 VBG pO2 41.3 VBG HCO3 21 Sodium Potassium Chloride Carbon Dioxide Anion Gap BUN Creatinine Estimated Creat Clear Estimated GFR Glucose Calcium Total Bilirubin AST ALT Alkaline Phosphatase Lactate Dehydrogenase 227 Total Protein 6.4 Albumin Fluid Volume 18 Fluid Color Xanthochromic A Fluid Appearance Clear Fluid pH 7.5 Fluid WBC 2 Fluid RBC 0 Fluid Polynuclear WBCs 50 Fluid Mononuclear WBCs 50 Fluid Glucose 110 Fluid Total Protein 4.6 Fluid LDH 349 09/17/24 06:20 WBC 9.71 RBC 4.35 Hgb 12.0 Hct 37.3 MCV 86 MCH 28 MCHC 32 RDW Coeff of Brianne 13.7 Plt Count 345 Neut % (Auto) 85.3 H Lymph % (Auto) 5.5 L Williams % (Auto) 7.6 Eos % (Auto) 0.8 Baso % (Auto) 0.3 Neut # (Auto) 8.30 H Lymph # (Auto) 0.50 L Williams # (Auto) 0.70 Eos # (Auto) 0.08 Baso # (Auto) 0.03 Abs Immat Gran (auto) 0.05 Imm/Tot Granulo (auto) 0.5 VBG pH VBG pCO2 VBG pO2 VBG HCO3 Sodium 129 L Potassium 4.8 Chloride 99 Carbon Dioxide 21 Anion Gap 9 BUN 47 H Creatinine 1.9 H Estimated Creat Clear 18.99 Estimated GFR 27 Glucose 107 Calcium 8.7 Total Bilirubin 0.2 AST 21 ALT 14 Alkaline Phosphatase 98 Lactate Dehydrogenase Total Protein 6.2 Albumin 3.3 Fluid Volume Fluid Color Fluid Appearance Fluid pH Fluid WBC Fluid RBC Fluid Polynuclear WBCs Fluid Mononuclear WBCs Fluid Glucose Fluid Total Protein Fluid LDH
[2024-09-17] MEDS: PERFLUTREN LIPID MICROSPHERES 2 ML VIAL IVP (13:30)
[2024-09-17] MEDS: cefTRIAXone 1 GM in 0.9 % SODIUM CHLORIDE Mini-bag 100 ML IVPB (14:17)
--- NOTE | 2024-09-17 15:05 | RESP.RT ---
Patient seen by Respiratory Therapy today. Incentive spirometer instruction given. Patient states she is not short of breath. Patient is tachypneic and requiring oxygen. Lung sounds clear left. Diminished on right. Dry cough.
[2024-09-17] MEDS: DIGOXIN 250 MCG/ML inj 125 MCG IV ×2 (15:10→20:47)
[2024-09-17] MEDS: SODIUM CHLORIDE 0.9 % (FLUSH) 10 ML SYRINGE 5 ML IVF ×2 (15:34→20:48)
[2024-09-17] MEDS: HEPARIN 500 UNIT/5 ML SYRINGE IVF ×2 (15:34→20:57)
[2024-09-18] VITALS (19 sets, daily range): BP systolic 89–124; BP diastolic 48–79; PULSE 64–132; RESP 18–38; TEMP 36.2–36.7; O2SAT 90–95
--- NOTE | 2024-09-18 00:56 | PC.NURSE ---
Shift note ([id number]): Patient?s BP?soft, heart rate and respirations elevated. Dr Banerjee updated of VS prior to Digoxin administration. Per MD ok to administer. Denies pain.?
[2024-09-18] MEDS: MORPHINE 2 MG/ML inj IVP ×3 (02:30→10:30)
[2024-09-18] MEDS: HEPARIN 500 UNIT/5 ML SYRINGE IVF ×4 (02:32→19:23)
[2024-09-18] MEDS: SODIUM CHLORIDE 0.9 % (FLUSH) 10 ML SYRINGE IVF ×2 (05:34→10:31)
[2024-09-18] MEDS: LEVOTHYROXINE 88 MCG TABLET PO (05:34)
[2024-09-18 07:07] LABS: Chloride* 101 mmol/L (96-114); Potassium* 4.9 mmol/L (3.6-5.1); Sodium* 130 mmol/L (135-149)
[2024-09-18 07:10] LABS: Anion Gap 7 mEq/L (7-15); Blood Urea Nitrogen* 49 mg/dL (7-30); Carbon Dioxide* 22 mmol/L (20-32); Creatinine* 1.8 mg/dL (0.5-1.5); Est. Creatinine Clearance* 20.04; Estimated Glomerular Filt Rate 28 ml/min; Glucose* 104 mg/dL (60-115)
[2024-09-18 07:11] LABS: Calcium* 8.8 mg/dL (8.4-10.6)
--- NOTE | 2024-09-18 07:55 | PC.NURSE ---
Pt alert and oriented x3. Afebrile. Pt denies pain, chest pain and N/V. Pt denies SOB but SOB is noted at rest and with exertion. Pt on 2L O2 via nasal cannula O2 stats ranging between 90-95% with respirations ranging between 26-34 gave. PRN morphine came down to RR 18-20, O2 stats continue to range between 90-94%. Pt has tele showed a-fib RVR, pt goes in and out of a-fib with RVR and a-fib with NVR MD aware. Weaned pt down from 2L of O2 via nasal cannula to 1.5L, pt tolerating well O2 stats 90-92%. ?
[2024-09-18] MEDS: DIGOXIN 125 MCG TABLET 62.5 MCG PO (09:11)
[2024-09-18] MEDS: ROSUVASTATIN CALCIUM 10 MG TABLET 20 MG PO (09:12)
[2024-09-18] MEDS: AZITHROMYCIN 250 MG TABLET PO (09:12)
[2024-09-18] MEDS: METOPROLOL SUCCINATE (XL) 25 MG TAB PO ×2 (11:50→20:09)
[2024-09-18] MEDS: cefTRIAXone 1 GM in 0.9 % SODIUM CHLORIDE Mini-bag 100 ML IVPB (11:50)
--- NOTE | 2024-09-18 12:17 | RESP.RT ---
Patient lying in HOB up position. On 1.5 Lpm NC with SaO2 92%, breathing regular/shallow/easy, rate 22/minute. Breath sounds on the Left lung haji, noted fine crackles with good air movement, breath sounds on the right lung field absent with transient sound from the left noted. Patient had good capillary refill, less than 2 seconds, warm hands, good skin color and tone. Clear voice, can cough to command, cough non-productive moist and forceful enough to clear secretions when present. Patient quit smoking over 10 years ago, has no home repiratory medications, and no home oxygen.
--- NOTE | 2024-09-18 13:47 | P.IMPN_ITS ---
Progress Note: A&P Assessment and plan (1) Acute hypoxemic respiratory failure: Problem details: - 09/17 s/p 800cc removed from R pleura via thoracentesis yesterday. Improved respiratory status. Comfortable, sats 96% on 2LPM NC. Cytology pending. Has h/o lung cancer, suspect this is a malignant effusion. - 09/18 oxygen needs decreasing slightly, remains dyspneic and hypoxic, especially with ambulation. With large right pleural effusion, suspected recurrent lung malignancy, HFrEF, and afib with RVR, expect that she will need chronic oxygen. Status: Acute (2) Pleural effusion: Problem details: - Large right pleural effusion with h/o lung cancer, suspect malignant, as above - Also has HFrEF, which appears to be chronic, stable. 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 CT stable 08/2023. Patient was lost to follow-up. Status: Chronic (4) Atrial fibrillation with RVR: Problem details: - Patient has an ICD. I suspect patient has been flipping from atrial fibrillation, which is at a slightly lower rate of 100's/irregular, to SVT, which may actually be atrial flutter at 130's, regular. Trial of metoprolol tar trate over first hospital night was unsuccessful. Digoxin load done 09/17/24. Some success, but back into 130's by morning. I spoke with Dr. Vo from [facility] 09/18/24. He thought that cardioversion was unlikely to be successful in the long run given the underlying heart and lung issues. He recommended adding either metoprolol succinate (which is better than tartrate in the setting of HFrEF) or amiodarone. Since she is normotensive now, I am starting her on metoprolol succinate 25mg BID. - Discussed anticoagulation with patient's granddaugter and son. Due to high fall risk at this time with oxygen, this has not been restarted. Status: Acute (5) Hyponatremia: Problem details: - suspect secondary to recurrent lung cancer. - 09/16 Asymptomatic. Start saline at 30 mL/hour, obtain thoracentesis for diagnostic purposes and recheck sodium in the morning. - 09/17 some improvement 127 to 129. Stop NS and monitor. - 09/18 Na stable 130. Status: Acute (6) Dementia: Problem details: - MOCA . Unclear what her baseline is. Son not here today. Reorient frequently as needed. She is in a room near nurses station. - Will see how she does over the next day or so. Will likely need to stop driving and have someone else responsible for her medication management. Unclear yet if she will need 24/7 supervision at home. Status: Chronic (7) Essential hypertension: Problem details: - Continue to hold HCTZ and lisinopril to allow for higher blood pressure for rate control. Status: Chronic (8) Hyperlipidemia: Problem details: - Continue rosuvastatin Status: Chronic (9) Hypothyroidism: Problem details: - TSH is within normal limits. Continue current dose of levothyroxine. Status: Chronic (10) Chronic kidney disease, stage 4 (severe): Problem details: - creatinine stable around baseline of 1.9. Status: Acute Time Spent With Patient Total time spent: Today I spent 50 minutes rounding on the patient. Greater than 50% included discussing care with the patient's granddaughter, son, [facility] environmental services aide, with the team, reviewing data, updating and managing the care plan. Subjective Time Seen by Provider: 07:46 Date Seen: 09/18/24 Interval history: Archana says she feels fine. Staff note that she is dyspneic with ambulation to the bathroom. Her granddaughter, Amy, was in the room this morning and spoke with me. She said that Archana's youngest son, Arnold, who lives with her is currently incarcerated and won't be living with her for a year. Amy said her dad (Solis) doesn't want anyone to know that and she was hoping I wouldn't divulge that I knew this, but could maybe get that information directly from him. I spoke with the patient's son, Solis, over the phone today ([phone]). He said he had a good long talk with Dr. Banerjee last night and already discussed that this is likely cancer and that she may not be a candidate for chemotherapy. We discussed that she will likely need home O2 and 24 hour supervision, she should not be driving, and she will need someone to cook for her and ensure she is getting good nutrition. Solis said Arnold lives in the home with her. When I asked him if Arnold would be providing 24 hour care, he said that Arnold was currently go ne for a bit on a job or something and possibly wouldn't be back for quite a while. He then said that he was filling in while Arnold was gone and would see if Archana wanted to live with him. We also discussed afib with RVR and tachycardia and I noted that I had spoken with a environmental services aide from [facility] and was trying a few more medicines for HR control. We discussed what might happen if none of these work to control HR: would she transfer for cardiology or discharge with comfort care? He thought it would be likely that she would not want anything aggressive, but would just want to be home, but said he would talk with her about it tonight. Exam Narrative: Exam Narrative: General: No acute distress. On oxygen via NC. Comfortable sitting in bed. Awake, alert, oriented to self and situation. Cardiovascular: Tachycardic, regular. No murmurs, gallops, or rubs. Chest: No respiratory distress. Coarse throughout left lung field with crackles at the base, no wheezes, no breath sounds over the right lung field. Abdomen: Bowel sounds present. Soft, nondistended, nontender. Extremities: No edema, no cyanosis or clubbing. Muscle wasting. Const: Vital Signs, click to edit/add: Vital Signs - 24 hr 09/17/24 14:58 09/17/24 15:00 09/17/24 15:00 Temperature Pulse Rate 129 H Pulse Rate [Right Pulse Oximeter] 129 H Respiratory Rate 36 H Blood Pressure [Ri ght Arm] Pulse Oximetry 95 Oxygen Delivery Me thod Oxygen Flow Rate 09/17/24 15:00 09/17/24 15:00 09/17/24 15:10 Temperature 98.1 F Pulse Rate 129 H Pulse Rate [Right Pulse Oximeter] 129 H Respiratory Rate 36 H Blood Pressure [Ri ght Arm] 111/68 Pulse Oximetry 94 95 Oxygen Delivery Me thod Nasal Cannula Nasal Cannula Oxygen Flow Rate 2 2 09/17/24 20:45 09/17/24 20:47 09/17/24 21:30 Temperature Pulse Rate 122 H Pulse Rate [Right Pulse Oximeter] 122 H Respiratory Rate 40 H Blood Pressure [Ri ght Arm] 80/57 L 91/47 L Pulse Oximetry 94 Oxygen Delivery Me thod Nasal Cannula Oxygen Flow Rate 2 09/17/24 22:30 09/17/24 23:30 09/18/24 01:10 Temperature 98.0 F 97.8 F Pulse Rate Pulse Rate [Right Pulse Oximeter] 117 H 129 H Respiratory Rate 28 H 30 H Blood Pressure [Ri ght Arm] 121/65 95/58 L 98/48 L Pulse Oximetry 95 95 Oxygen Delivery Me thod Nasal Cannula Nasal Cannula Oxygen Flow Rate 2 2 09/18/24 01:36 09/18/24 01:36 09/18/24 01:36 Temperature Pulse Rate 101 H Pulse Rate [Right Pulse Oximeter] 101 H Respiratory Rate 30 H 30 H Blood Pressure [Ri ght Arm] Pulse Oximetry 95 Oxygen Delivery Me thod Nasal Cannula Oxygen Flow Rate 2 09/18/24 02:25 09/18/24 03:15 09/18/24 03:50 Temperature 98.1 F Pulse Rate Pulse Rate [Right Pulse Oximeter] 124 H 65 64 Respiratory Rate 34 H 18 18 Blood Pressure [Ri ght Arm] 123/79 Pulse Oximetry 94 93 94 Oxygen Delivery Me thod Nasal Cannula Nasal Cannula Nasal Cannula Oxygen Flow Rate 2 2 2 09/18/24 05:26 09/18/24 07:46 09/18/24 08:14 Temperature 98.0 F 97.7 F Pulse Rate 71 Pulse Rate [Right Pulse Oximeter] 132 H 67 Respiratory Rate 30 H 24 Blood Pressure [Ri ght Arm] 104/71 89/68 L Pulse Oximetry 95 94 Oxygen Delivery Me thod Nasal Cannula Nasal Cannula Oxygen Flow Rate 2 1.5 09/18/24 08:17 09/18/24 09:11 09/18/24 10:30 Temperature 97.7 F Pulse Rate 129 H Pulse Rate [Right Pulse Oximeter] 128 H Respiratory Rate 20 28 H Blood Pressure [Ri ght Arm] 100/78 Pulse Oximetry 94 93 Oxygen Delivery Me thod Nasal Cannula Nasal Cannula Oxygen Flow Rate 1.5 1.5 09/18/24 11:30 09/18/24 12:14 Temperature Pulse Rate Pulse Rate [Right Pulse Oximeter] 131 H Respiratory Rate 22 Blood Pressure [Ri ght Arm] 124/67 Pulse Oximetry 92 Oxygen Delivery Me thod Nasal Cannula Oxygen Flow Rate 1.5 Labs Labs: Laboratory Results - last 24 hr 09/18/24 06:25 Sodium 130 L Potassium 4.9 Chloride 101 Carbon Dioxide 22 Anion Gap 7 BUN 49 H Creatinine 1.8 H Estimated Creat Clear 20.04 Estimated GFR 28 Glucose 104 Calcium 8.8 09/17/2024 echocardiogram: Normal LV size, normal wall thickness, severely reduced global systolic function with an estimated EF of 20-25%. Multiple segmental abnormalities exist. Right ventricular cavity size is normal, global systolic RV function is normal, pacemaker wire present. Aortic valve is trileaflet and sclerotic, no stenosis and trivial regurgitation. Trivial pericardial effusion. 09/18/2024 EKG: Atrial fibrillation with a competing junctional pacemaker, 90 beats per minute, rightward axis.
--- NOTE | 2024-09-18 15:01 | PC.SOCIAL ---
Addendum entered and electronically signed by RUDY Mane 09/18/24 16:05: Discharge planning: psychiatric social worker called pt's son Solis this afternoon to see if he was stopping up at the hospital today after work so this worker could talk with him about discharge planning for his mom. Solis said he was driving back towards [place] from [place], [place] and was stuck in traffic in the [facility] and would not make it here before this worker left for the day at 4:30pm. Solis also said that he needed to concentrate on driving since he was in heavy stop and go traffic and did not want to chat over the phone today. Solis said he would try to get done with work early tomorrow so that he could meet with this worker before the end of the day to discuss discharge planning for the pt. psychiatric social worker plans to check-in with Solis via phone call early tomorrow afternoon to plan on a time to meet later in the afternoon at the hospital after he is done with work. Social work to follow-up as needed. Original Note: Discharge planning: psychiatric social worker and social work copywriting intern met with the pt today in her room. psychiatric social worker completed an initial assessment with the pt. The pt was tired, but willing to meet and was able to answer most of the questions. Pt stated that she lives in a one story home with her son, Arnold, and her other son, Solis, lives two blocks away from her in [place], [place]. psychiatric social worker had received word from the provider on duty that the pt's son, Arnold, may be incarcerated right now, but the pt did not seem to know anything about that and the pt's other son, Solis, has not mentioned it at all. 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 Pt shares that she has no services at home and that she manages fine on her own. Pt set-ups her medications and takes them on her own and this is working well for her. Pt also drives to [place] to pick her medications up from [facility] there and if she is ever not able to do that her son will go and get them for her. Pt stated that she has no concerns about returning home after her discharge from the hospital and is aware that she will most likely return home with oxygen, which she just started using during this hospital stay. Pt shared that if she is eligible for short-term rehab she would have interest in going to short-term rehab after the hospital, but is also fine with returning back home. Social work to follow-up as needed.
--- NOTE | 2024-09-18 17:41 | PC.NURSE ---
Shift Summary: Patient pleasant and cooperative. Up with SBA. HR increased throughout day, as high as 130, updated and new orders placed, see MAR. PRN morphine for increased RR which was effective. Denies pain or SOB. o2 sat drops to 85% after ambulation, o2 @ 1.5L/NC, recovers within minutes. Poor appetite today, agreeable to ensure for dinner. Denies nausea.
[2024-09-18] MEDS: SODIUM CHLORIDE 0.9 % (FLUSH) 10 ML SYRINGE 5 ML IVF (19:22)
[2024-09-18] MEDS: APIXABAN 5 MG TABLET 2.5 MG PO (20:09)
[2024-09-19] VITALS (12 sets, daily range): BP systolic 90–145; BP diastolic 50–69; PULSE 65–103; RESP 28–34; TEMP 36.2–36.6; O2SAT 90–95
--- NOTE | 2024-09-19 05:16 | PC.NURSE ---
Pt up SBA. Voiding. Afebrile. Remained on 2L NC most of the night. Resp mid to high 30s. Reporting zero pain. Pleasant and cooperative.
[2024-09-19] MEDS: LEVOTHYROXINE 88 MCG TABLET PO (06:04)
[2024-09-19] MEDS: AZITHROMYCIN 250 MG TABLET PO (08:33)
[2024-09-19] MEDS: DIGOXIN 125 MCG TABLET 62.5 MCG PO (08:33)
[2024-09-19] MEDS: ROSUVASTATIN CALCIUM 10 MG TABLET 20 MG PO (08:33)
[2024-09-19] MEDS: APIXABAN 5 MG TABLET 2.5 MG PO ×2 (08:33→21:01)
[2024-09-19] MEDS: METOPROLOL SUCCINATE (XL) 25 MG TAB PO ×2 (08:34→21:00)
--- NOTE | 2024-09-19 09:22 | PM.IMPN1 ---
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 Status: Chronic (3) Atrial fibrillation with RVR: Problem details: - on admission, suspect that patient has been flipping from atrial fibrillation, which is at a slightly lower rate of 100's/irregular, to SVT, which may actually be atrial flutter at 130's, regular. Trial of metoprolol tartrate over first hospital night was unsuccessful - 09/17/24: Digoxin load done 09/17/24. Some success, but back into 130's by morning - 09/18/24: Dr. Trejo reviewed case with Dr. Vo from [facility], felt cardioversion was unlikely to be successful in the long run given comorbidities, recommended transition to Metoprolol Succinate vs Amiodarone - 09/19/24: On Metoprolol succinate and Digoxin at this time with appropriate rate control - On Eliquis BID for a fib and malignancy, high risk for falls given comorbidities and oxygen use (needs further discussion with family/PCP regarding anticoagulation) Status: Acute (4) Hyponatremia: Problem details: - suspect secondary to recurrent lung cancer. - 09/16 Asymptomatic. Start saline at 30 mL/hour, obtain thoracentesis for diagnostic purposes and recheck sodium in the morning. - 09/17 some improvement 127 to 129. Stop NS and monitor. - 09/18 Na stable 130. Status: Acute (5) Dementia: Problem details: - MOCA . Unclear what her baseline is (previous MOCA in 2019 similar, patient had COVID at that time) - currently recommend no driving and 29/05 supervision; we have not been able to discuss this further with family regarding dispo as of 09/19 Status: Chronic (6) Essential hypertension: Problem details: - Continue to hold HCTZ and lisinopril to allow for higher blood pressure for rate control. Status: Chronic (7) Hyperlipidemia: Problem details: - Continue rosuvastatin Status: Chronic (8) Hypothyroidism: Problem details: - TSH is within normal limits. Continue current dose of levothyroxine. Status: Chronic (9) Chronic kidney disease, stage 4 (severe): Problem details: - creatinine stable around baseline of 1.9. Status: Acute Plan - patient stable on current regimen - if renal function unchanged on 09/20, ready for d/c with family support/HH - patient declining TCU/SNF, 24/ supervision recommended - left message for son Solis, called again in the early afternoon with no answer - appreciate input from SW and therapy teams regarding dispo planning Subjective Date Seen: 09/19/24 Interval history: Archana was admitted to the hospital on 09/16 for dyspnea and weakness, found to have large R sided pleural effusion and a fib with RVR. Comorbidities include previous lunch cancer, dementia (MOCA during stay ), hypothyroidism, HFrEF (recent EF 20-25%), a fib anticoagulated on Eliquis, CAD, ICD in place. Thoracentesis performed upon admission, pathology pending. Patient does not think she'd pursue treatment if this resulted as recurrent malignancy. Since admission: - continues to require supplemental oxygen, will likely need long term care phlebotomist - RVR has resolved with addition of Digoxin, tolerating this well. Has had a normal HR since 09/18 - MOCA , recommendation from therapies is that patient no longer drive and have / supervision Discussed recommendations with Archana this morning. She is currently declining SNF/TCU. Son Arnold was previously living with her, is unavailable at this time. She believes that son Solis and his would be able to help with 24/7 care. Called Solis and this morning, left messages for them to discuss disposition. Exam Narrative: Exam Narrative: GEN: Sitting up at edge of bed, appears chronically ill but nontoxic HEENT: No scleral icterus CV: RRR, No concerning murmurs, rubs, or gallops R: Wearing supplemental oxygen, RR 24-28 during my exam, decreased bibasilar breath sounds Neuro: No focal deficits on limited exam, no resting tremor, gait not observed Psych: Cognitive impairment is evident, no agitation Const: Vital Signs, click to edit/add: Vital Signs - 24 hr 09/18/24 10:30 09/18/24 11:30 09/18/24 12:14 Temperature 97.7 F Pulse Rate Pulse Rate [Right Pulse Oximeter] 128 H 131 H Respiratory Rate 28 H 22 Blood Pressure [Ri ght Arm] 100/78 124/67 Pulse Oximetry 93 92 Oxygen Delivery Me thod Nasal Cannula Nasal Cannula Oxygen Flow Rate 1.5 1.5 Fraction of Inspir ed Oxygen 09/18/24 15:00 09/18/24 15:00 09/18/24 16:00 Temperature Pulse Rate 66 Pulse Rate [Right Pulse Oximeter] Respiratory Rate 24 Blood Pressure [Ri ght Arm] Pulse Oximetry 90 93 Oxygen Delivery Me thod Nasal Cannula Oxygen Flow Rate 1.5 Fraction of Inspir ed Oxygen 09/18/24 19:16 09/18/24 21:29 09/18/24 22:15 Temperature 97.6 F 97.1 F L Pulse Rate 64 Pulse Rate [Right Pulse Oximeter] 86 64 Respiratory Rate 38 H 34 H Blood Pressure [Ri ght Arm] 113/60 99/61 Pulse Oximetry 92 92 Oxygen Delivery Me thod Nasal Cannula Nasal Cannula Oxygen Flow Rate 1.5 1.5 Fraction of Inspir ed Oxygen 09/18/24 22:17 09/19/24 00:05 09/19/24 02:22 Temperature 97.1 F L Pulse Rate Pulse Rate [Right Pulse Oximeter] 67 67 Respiratory Rate 34 H 34 H 34 H Blood Pressure [Ri ght Arm] 90/56 L Pulse Oximetry 92 92 Oxygen Delivery Me thod Nasal Cannula Nasal Cannula Oxygen Flow Rate 1.5 2 Fraction of Inspir ed Oxygen 45 45 09/19/24 07:49 09/19/24 07:49 09/19/24 07:59 Temperature 97.5 F L Pulse Rate 67 Pulse Rate [Right Pulse Oximeter] 65 Respiratory Rate 30 H 30 H Blood Pressure [Ri ght Arm] 145/56 H Pulse Oximetry 90 90 Oxygen Delivery Me thod Nasal Cannula Nasal Cannula Oxygen Flow Rate 2 2 Fraction of Inspir ed Oxygen 09/19/24 08:33 Temperature Pulse Rate 65 Pulse Rate [Right Pulse Oximeter] Respiratory Rate Blood Pressure [Ri ght Arm] Pulse Oximetry Oxygen Delivery Me thod Oxygen Flow Rate Fraction of Inspir ed Oxygen
[2024-09-19] MEDS: SODIUM CHLORIDE 0.9 % (FLUSH) 10 ML SYRINGE 5 ML IVF (11:47)
[2024-09-19] MEDS: cefTRIAXone 1 GM in 0.9 % SODIUM CHLORIDE Mini-bag 100 ML IVPB (11:47)
[2024-09-19] MEDS: HEPARIN 500 UNIT/5 ML SYRINGE IVF ×2 (12:24→21:30)
[2024-09-19] MEDS: SODIUM CHLORIDE 0.9 % (FLUSH) 10 ML SYRINGE IVF ×2 (12:25→21:30)
--- NOTE | 2024-09-19 16:05 | PC.SOCIAL ---
Discharge planning: Received call from son Solis regarding d/c planning. Son states he is planning to pick pt up tomorrow afternoon and is able to provide 24/7 care through the weekend which will give him time to figure out how to continue to cover 24/7 care in her home. Son is aware pt needs this level of supervision. Discussed placement in a intermediate or assisted living facility and that this would be private pay. Son is aware pt is not interested in this option. Son is willing to accept written information on this option in case it is needed in the future but is not interested in arranging this for discharge. pattern worker to provide son with written information on [facility] [employer] [facility], [facility] agencies, and private pay placement options. Son's questions were answered and he is pleased with plan for discharge home tomorrow. He will work in the morning and pick her up after lunch tomorrow. Son will discuss these plans when he visits with pt this evening. pattern worker to follow up as needed.
--- NOTE | 2024-09-19 17:23 | PC.NURSE ---
Shift Summary: Patient pleasant and cooperative. Up with SBA. Continues to require o2 @ 2L/NC. Vitals stable with RR still increased in the 30's however patient denies SOB. groundwater monitoring technician still showing a-fib. Denies pain, improved appetite today and agreeable to ensure. Worked with PT this afternoon.
[2024-09-20] VITALS (8 sets, daily range): BP systolic 113–126; BP diastolic 61–73; PULSE 69–107; RESP 30–34; TEMP 36.4; O2SAT 84–94
[2024-09-20] MEDS: LEVOTHYROXINE 88 MCG TABLET PO (06:07)
[2024-09-20] MEDS: SODIUM CHLORIDE 0.9 % (FLUSH) 10 ML SYRINGE IVF ×2 (06:08→11:23)
[2024-09-20] MEDS: HEPARIN 500 UNIT/5 ML SYRINGE IVF ×2 (06:08→11:23)
[2024-09-20 06:40] LABS: Basophils Absolute Auto 0.05 K/uL (0.00-0.30); Basophils Percent Auto 0.6 % (0.0-3.0); Eosinophils Absolute Auto 0.22 K/uL (0.00-0.50); Eosinophils Percent Auto 2.5 % (0.0-7.0); Hematocrit 36.3 % (33.0-51.0); Hemoglobin* 11.4 gm/dL (12.0-16.0); Immature Granulocytes Abs Auto 0.04 K/uL (0.00-0.30); Immature Granulocytes Pct Auto 0.5 %; Lymphocytes Percent Auto 7.9 % (20-44); Mean Corpuscular HGB Conc 31 gm/dL (32-36); Mean Corpuscular Hemoglobin 27 pg (26-34); Mean Corpuscular Volume 87 fL (80-100); Monocytes Percent Auto 7.5 % (0.0-11.0); Platelet Count* 310 K/uL (140-440); RDW Coefficient of Variation % 13.9 % (11.5-15.5); Red Blood Count 4.18 m/uL (4.00-5.20); White Blood Count* 8.81 K/uL (4.50-11.00)
[2024-09-20 06:46] LABS: Slide Review Reflex No
[2024-09-20 06:55] LABS: Chloride* 101 mmol/L (96-114); Potassium* 4.9 mmol/L (3.6-5.1); Sodium* 135 mmol/L (135-149)
[2024-09-20 06:58] LABS: Anion Gap 9 mEq/L (7-15); Carbon Dioxide* 25 mmol/L (20-32); Creatinine* 1.6 mg/dL (0.5-1.5); Est. Creatinine Clearance* 22.55; Estimated Glomerular Filt Rate 33 ml/min
[2024-09-20 06:59] LABS: Blood Urea Nitrogen* 46 mg/dL (7-30); Calcium* 9.3 mg/dL (8.4-10.6); Glucose* 105 mg/dL (60-115)
--- NOTE | 2024-09-20 07:45 | PC.NURSE ---
End of shift note [id number]: Pt noted to have intermittent forgetfulness with bed alarm utilized due to cognitive impairment. Pt transfers well with SBA using gait belt. She has been denying pain when asked. 2 liters oxygen administered via NC to maintain O2 sats over 90%. Pt noted to be continent and incontinent of bladder. Telemetry in place with A fib noted. Call light within reach.
[2024-09-20] MEDS: APIXABAN 5 MG TABLET 2.5 MG PO (08:38)
[2024-09-20] MEDS: ROSUVASTATIN CALCIUM 10 MG TABLET 20 MG PO (08:38)
[2024-09-20] MEDS: AZITHROMYCIN 250 MG TABLET PO (08:39)
[2024-09-20] MEDS: METOPROLOL SUCCINATE (XL) 25 MG TAB PO (08:39)
[2024-09-20] MEDS: DIGOXIN 125 MCG TABLET 62.5 MCG PO (08:39)
--- NOTE | 2024-09-20 10:32 | P.DS_ITS ---
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: Status: Chronic Problem details: - treated with chemo and radiation, CT stable 08/2023, then lost to follow-up (3) Counseling regarding goals of care: Status: Acute Problem details: - patient declined aggressive interventions during stay - precontemplative regarding the discontinuation of Eliquis, turning off ICD, etc - will discuss with son and PCP upon discharge - understands that she's an appropriate hospice candidate and will discuss this further with her son and PCP (4) HFrEF (heart failure with reduced ejection fraction): Status: Acute Problem details: - TTE performed 09/17/24 - did not aggressively attempt GDMT given lower BPs during stay and goals of care Final Impressions: 1. Normal LV size, normal wall thickness, severely reduced global systolic function with an estimated EF of 20 - 25%. 2. Multiple segmental abnormalities exist. See findings. 3. Right ventricular cavity size is normal, global systolic RV function is normal. Pacemaker wire present. 4. The aortic valve is trileaflet and sclerotic, no stenosis and trivial regurgitation. 5. Trivial pericardial effusion. 6. Echo contrast was administered to enhance visualization of all left ventricular segments. (5) Atrial fibrillation with RVR: Status: Acute Problem details: - on admission, suspect that patient was flipping from atrial fibrillation (100s) to SVT/a flutter (130s), did not respond to Metoprolol on hospital day 1 - 09/17/24: Digoxin load done 09/17/24. Some success, but back into 130's by morning - 09/18/24: Dr. Trejo d/w Dr. Vo ([facility]), felt cardioversion was unlikely to be successful 2/2 comorbidities, recommended Metoprolol Succinate vs Amiodarone - 09/19/24: On Metoprolol succinate and Digoxin at this time with appropriate rate control - On Eliquis BID for a fib and malignancy, high risk for falls given comorbidities and oxygen use (needs further discussion with family/PCP regarding anticoagulation) (6) Dementia: Status: Chronic Problem details: - MOCA . Unclear what her baseline is (previous MOCA in 2019 similar, patient had COVID at that time) - currently recommend no driving and 24/7 supervision; we have not been able to discuss this further with family regarding dispo as of 09/19 (7) Chronic kidney disease, stage 4 (severe): Status: Acute Problem details: - baseline 1.8-1.9, creatinine is 1.6 upon discharge (8) Moderate protein-calorie malnutrition: Status: Acute Problem details: - suspect multifactorial due to dementia and possible malignancy DS: Summary Hospital Course Hospital Course: Archana was admitted to the hospital on 09/16 for dyspnea and weakness, found to have large R sided pleural effusion, in addition to tachycardia (appeared to alternate between atrial flutter/SVT and atrial fibrillation/RVR). Comorbidities include previous lunch cancer, dementia (MOCA during stay ), hypothyroidism, HFrEF (EF 20-25%), a fib anticoagulated on Eliquis, CAD, ICD in place. Thoracentesis performed upon admission, pathology exhibits + malignant cells. Notable findings during stay: - acute hypoxic respiratory failure (multifactorial from previous malignancy, + malignant effusion, arrhythmia, HFrEF) - RVR resolved with addition of Digoxin and Metoprolol succinate, tolerated this combination well with improvement in HR, no CP - MOCA , recommendation from therapies is that patient no longer drive and have 24/7 supervision, family aware of this recommendation. Archana declined TCU/SNF placement - multiple discussions regarding goals of care: patient hospice appropriate, can likely perform significant medication reduction and turn off ICD. She's contemplating this and will discuss further with son Solis and PCP Status at Discharge Functional status at discharge: uses cane/walker Time Spent with Patient Time attestation: Total time spent providing and/or coordinating discharge services: Time spent: Greater than 30 minutes Specific discharge activities: Medication management, updates to patient's son and PCP Exam Narrative: Exam Narrative: GEN: Awake and sitting comfortably on edge of bed, appears chronically ill HEENT: EOMIs bilaterally, no scleral icterus CV: Irregular with rate in the 90s during my exam R: Decreased bibasilar breath sounds, wearing oxygen and breathing comfortably Ext: Clubbing noted bilateral upper extremities Psych: Cognitive impairment is evident, no agitation Const: Vital Signs, click to edit/add: Vital Signs - 24 hr 09/19/24 11:28 09/19/24 15:00 09/19/24 15:00 Temperature 97.8 F Pulse Rate 88 Pulse Rate [Right Pulse Oximeter] 88 Respiratory Rate 32 H Blood Pressure [Ri ght Arm] 117/66 Pulse Oximetry 95 93 Oxygen Delivery Me thod Nasal Cannula Oxygen Flow Rate 2 09/19/24 15:00 09/19/24 15:00 09/19/24 19:50 Temperature 97.5 F L 97.8 F Pulse Rate Pulse Rate [Right Pulse Oximeter] 91 103 H Respiratory Rate 30 H 30 H 28 H Blood Pressure [Ri ght Arm] 135/50 L 124/69 Pulse Oximetry 93 93 93 Oxygen Delivery Me thod Nasal Cannula Nasal Cannula Nasal Cannula Oxygen Flow Rate 2 2 2 09/19/24 20:59 09/19/24 22:57 09/19/24 23:00 Temperature Pulse Rate 65 Pulse Rate [Right Pulse Oximeter] 83 65 Respiratory Rate 30 H Blood Pressure [Ri ght Arm] 123/53 L Pulse Oximetry Oxygen Delivery Me thod Oxygen Flow Rate 09/19/24 23:51 09/19/24 23:51 09/20/24 02:30 Temperature 97.2 F L 97.5 F L Pulse Rate Pulse Rate [Right Pulse Oximeter] 65 104 H Respiratory Rate 30 H 30 H 32 H Blood Pressure [Ri ght Arm] 112/58 L 113/73 Pulse Oximetry 95 95 93 Oxygen Delivery Me thod Nasal Cannula Nasal Cannula Nasal Cannula Oxygen Flow Rate 2 2 2 09/20/24 07:58 09/20/24 07:58 09/20/24 07:58 Temperature 97.5 F L Pulse Rate Pulse Rate [Right Pulse Oximeter] 69 86 Respiratory Rate 30 H Blood Pressure [Ri ght Arm] 126/66 Pulse Oximetry 92 92 Oxygen Delivery Me thod Nasal Cannula Nasal Cannula Oxygen Flow Rate 2 2 09/20/24 08:25 09/20/24 08:39 Temperature Pulse Rate 69 107 H Pulse Rate [Right Pulse Oximeter] Respiratory Rate Blood Pressure [Ri ght Arm] Pulse Oximetry Oxygen Delivery Me thod Oxygen Flow Rate DS: Data Data Completed and Pending Labs on day of discharge: Labs from last 24 hours 09/20/24 Unknown WBC 8.81 RBC 4.18 Hgb 11.4 L Hct 36.3 MCV 87 MCH 27 MCHC 31 L RDW Coeff of Brianne 13.9 Plt Count 310 Neut % (Auto) 81.0 H Lymph % (Auto) 7.9 L Douglas % (Auto) 7.5 Eos % (Auto) 2.5 Baso % (Auto) 0.6 Neut # (Auto) 7.10 H Lymph # (Auto) 0.70 L Douglas # (Auto) 0.70 Eos # (Auto) 0.22 Baso # (Auto) 0.05 Abs Immat Gran (auto) 0.04 Imm/Tot Granulo (auto) 0.5 Sodium 135 Potassium 4.9 Chloride 101 Carbon Dioxide 25 Anion Gap 9 BUN 46 H Creatinine 1.6 H Estimated Creat Clear 22.55 Estimated GFR 33 Glucose 105 Calcium 9.3 Preliminary micro results at discharge 09/16/24 16:53 Body Fluid Culture - Preliminary Pleural Fluid NO GROWTH AFTER 72 HOURS 09/16/24 12:44 Blood Culture - Preliminary Blood NO GROWTH AFTER 72 HOURS Discharge Plan Discharge Disposition: Home, Self-Care Date of Admission: 09/16/24 14:58 Attending Provider on Discharge: María Frye Primary Care Provider: Dago Cleaning Discharge Medications: New acetaminophen 325 mg Tablet 975 mg PO Q6H PRN (Reason: pain or fever) Qty: 14 0RF docusate sodium 100 mg Capsule 100 mg PO BID PRN (Reason: Constipation) Qty: 60 0RF digoxin 125 mcg (0.125 mg) Tablet 62.5 mcg PO DAILY Qty: 30 0RF metoprolol succinate 25 mg Tablet Extended Release 24 Hr 25 mg PO BID Qty: 60 0RF Continued Eliquis 2.5 mg tablet 2.5 mg PO BID Qty: 180 3RF rosuvastatin 20 mg tablet 20 mg PO DAILY Qty: 90 3RF levothyroxine 88 mcg tablet 88 mcg PO DAILY Discontinued acetaminophen [Tylenol] 325 mg capsule 650 mg PO Q6H PRN hydrochlorothiazide 25 mg tablet 25 mg PO DAILY Qty: 90 3RF lisinopril 10 mg tablet 10 mg PO DAILY Discharge Orders: Discharge Order (Routine); Ordered 09/20/24 Ordered By: María Frye Patient Education: Metoprolol (By mouth), Digoxin (By mouth), Acetaminophen (By mouth), Laxative, Stimulant (By mouth), Pleural Effusion (DC) Additional Instructions: NEW MEDICATIONS (both of these sent to [facility]): 1. Metoprolol twice per day for your heart 2. Digoxin once/day for your heart We are sending you home with Oxygen (will help you when you feel short of breath). The fluid from your lungs was positive for a recurrence of your cancer. I think it would be reasonable to STOP your Rosuvastatin, Levothyroxine, and Eliquis given your goals of care. We also discussed hospice care, and turning off your ICD (you wanted to wait and talk with Solis and Dr. Cleaning about the medications and plan more). Activity Level: No strenuous activity Discharge Diet: Regular Follow Up Appointments: Dago Cleaning MD [Primary Care Provider] - 09/24/24 11:15 am ([facility] for follow up appointment with PCP) Forms: [employer] Info Instructions
[2024-09-20] MEDS: cefTRIAXone 1 GM in 0.9 % SODIUM CHLORIDE Mini-bag 100 ML IVPB (10:51)
[2024-09-20] MEDS: SODIUM CHLORIDE 0.9 % (FLUSH) 10 ML SYRINGE 5 ML IVF (10:59)
--- NOTE | 2024-09-20 15:07 | PC.NURSE ---
Shift Summary: Patient pleasant and cooperative. Up with SBA to bathroom. Continues to use o2 @ 2L/NC. Denies pain or nausea. appetite better today, ate most of breakfast. Port de-accessed. Attempted to call patients son for discharge however went to voice mail. Vitals remain stable. Awaiting discharge at this time.
--- NOTE | 2024-09-20 17:35 | PC.NURSE ---
(shift 15-19)- Pt slept most of mid afternoon. Pt awaiting son for discharge. Pt up with SBA with walker and gait belt.?Pt discharged with son.
== END 2024-09-20 17:33 | disposition home or self-care (01) | DRG 180 ==
LOC: ED 11:09 → MEDSURG 13:36
PROVIDERS: Family Medicine; Admitting Provider Family Medicine; Emergency Provider Emergency Medicine; PCP Family Medicine; Visit Provider Family Medicine
DX: C34.11 Malignant neoplasm of upper lobe, right bronchus or lung (principal); J96.01 Acute respiratory failure with hypoxia; J91.0 Malignant pleural effusion; E87.1 Hypo-osmolality and hyponatremia; N18.4 Chronic kidney disease, stage 4 (severe); E44.0 Moderate protein-calorie malnutrition; I13.0 Hypertensive heart and chronic kidney disease with heart failure and stage 1 through stage 4 chronic kidney disease, or unspecified chronic kidney disease; I50.22 Chronic systolic (congestive) heart failure; I48.92 Unspecified atrial flutter; I48.91 Unspecified atrial fibrillation; R00.0 Tachycardia, unspecified; Z79.01 Long term (current) use of anticoagulants; F03.90 Unspecified dementia, unspecified severity, without behavioral disturbance, psychotic disturbance, mood disturbance, and anxiety; E03.9 Hypothyroidism, unspecified; I25.10 Atherosclerotic heart disease of native coronary artery without angina pectoris; E78.5 Hyperlipidemia, unspecified; Z95.5 Presence of coronary angioplasty implant and graft; Z95.0 Presence of cardiac pacemaker; Z87.891 Personal history of nicotine dependence
CPT/HCPCS: 32555; 36415; 71045; 71250; 76604; 80048; 80053; 81001; 82565; 82803; 82945; 83605; 83615; 83880; 83986; 84155; 84157; 84443; 84484; 85025; 87040; 87070; 87086; 87186; 87205; 87631; 88112; 88305; 88341; 88342; 89051; 93005; 93306; 94660; 94761; 97161; 97166; 99285; A9270; J0456; J0696; J1160; J1642; J2270; J7030; J7050; Q9957